=== PATIENT | male | born 1985 | race Caucasian/White ===

== ENCOUNTER 2016-09-06 14:08 | Emergency (ER) | payer MEDICAID ==
[~2016-09-06] VITALS: Ht 175.3 cm; Wt 91.0 kg
[2016-09-06] MEDS ORDERED: SODIUM CHLORIDE 0.9% 1,000 ML IV ONE (15:33)
[2016-09-06 16:24] LABS: CHLORIDE 101 mEq/L (98-107); INDEX HEMOLYSI 1 (1-3); INDEX ICTERIC 1 (1-4); INDEX LIPEMIC 1 (1-3)
[2016-09-06 16:27] LABS: CALCIUM 8.3 mg/dL (8.5-10.1)
[2016-09-06 16:28] LABS: BASOPHILS % 0.9 % (0.0-2.0); EOSINOPHILS % 2.2 % (0.0-5.0); HEMATOCRIT. 37.7 % (42.0-52.0); HEMOGLOBIN. 12.2 g/dL (14.0-18.0); LYMPHOCYTES % 42.4 % (20.0-50.0); MEAN CORPUSCULAR HGB CONC 32.4 g/dL (31.0-37.0); MEAN CORPUSCULAR VOLUME 80.2 fL (80.0-94.0); MEAN PLATELET VOLUME 7.6 fl (7.4-10.4); MONOCYTES % 9.8 % (2.0-8.0); NEUTROPHILS % 44.7 % (40.0-76.0); PLATELET 284 x1000/uL (130-400); RED BLOOD CELL COUNT 4.69 mill/uL (4.7-6.1); RED CELL DISTRIBUTION WIDTH 23.2 % (11.6-14.6); WHITE BLOOD COUNT 6.3 x1000/uL (4.5-11.0)
[2016-09-06 16:31] LABS: ALANINE AMINOTRANSFERASE 67 IU/L (13-61); ALBUMIN 3.5 g/dL (3.4-5.0); ANION GAP 15; CARBON DIOXIDE 33 mEq/L (21-32); UREA NITROGEN BLOOD 5 mg/dL (7-21); eGFR > 60 mL/min (>60)
[2016-09-06 16:32] LABS: DIFFERENTIAL COMMENT 1
[2016-09-06 16:34] LABS: ADD RBC MORPHOLOGY YES
[2016-09-06 16:51] LABS: ETHANOL BLOOD 462 mg/dL
[2016-09-06 17:15] LABS: MAGNESIUM 2.3 mg/dL (1.8-2.4)
[2016-09-06] MEDS ORDERED: MAGNESIUM 2 G PREMIX 50 ML IV ONE (17:15)
[2016-09-06] MEDS ORDERED: KCL 20MEQ/100ML PREMIX 100 ML IV ONE (17:15)
[2016-09-06] MEDS ORDERED: OLANZAPINE 10 MG/VIAL IM ONE (17:15)
[2016-09-06] MEDS ORDERED: LORAZEPAM 2MG/ML CPJ IM PRN (17:15)
[2016-09-06 17:19] LABS: CLARITY URINE CLEAR (CLEAR); COLOR URINE YELLOW (YELLOW); GLUCOSE URINE NEGATIVE (NEGATIVE); KETONES URINE NEGATIVE (NEGATIVE); LEUKOCYTE ESTERASE URINE NEGATIVE (NEGATIVE); NITRITE URINE NEGATIVE (NEGATIVE); OCCULT BLOOD URINE NEGATIVE (NEGATIVE); PROTEIN URINE NEGATIVE (NEGATIVE); SPECIFIC GRAVITY URINE 1.004 (1.005-1.030); UROBILINOGEN URINE 0.2 E.U./dL (0.2-1.0)
[2016-09-06 17:39] LABS: ANISOCYTOSIS 2+; GIANT PLATELETS FEW; PLATELET ESTIMATE NORMAL
[2016-09-06 17:55] LABS: *AMPHETAMINES SCREEN URINE NEGATIVE (NEGATIVE); *BARBITURATES SCREEN URINE NEGATIVE (NEGATIVE); *BENZODIAZEPINES SCREEN URINE NEGATIVE (NEGATIVE); *COCAINE SCREEN URINE NEGATIVE (NEGATIVE); CANNABINOID URINE SCREEN NEGATIVE (NEGATIVE); ECSTASY MDMA SCREEN URINE NEGATIVE (NEGATIVE); METHADONE URINE SCREEN NEGATIVE (NEGATIVE); OPIATES URINE SCREEN NEGATIVE (NEGATIVE); PHENCYCLIDINE URINE SCREEN NEGATIVE (NEGATIVE)
[2016-09-06] MEDS ORDERED: POTASSIUM BICARB/CIT ACID 25 MEQ TABLET.EFF PO ONE (19:00)
[2016-09-06 20:00] LABS: CHLORIDE 104 mEq/L (98-107); INDEX HEMOLYSI 1 (1-3); INDEX ICTERIC 1 (1-4); INDEX LIPEMIC 1 (1-3)
[2016-09-06 20:01] LABS: CALCIUM 8.2 mg/dL (8.5-10.1)
[2016-09-06 20:06] LABS: ANION GAP 14; CARBON DIOXIDE 33 mEq/L (21-32); UREA NITROGEN BLOOD 7 mg/dL (7-21); eGFR > 60 mL/min (>60)
[2016-09-06 20:20] VITALS: BP 106/54
== END 2016-09-06 21:26 | disposition home or self-care (01) ==
LOC: ER 14:32
DX: F10.129 Alcohol abuse with intoxication, unspecified (principal); F20.9 Schizophrenia, unspecified; F17.200 Nicotine dependence, unspecified, uncomplicated; Y90.8 Blood alcohol level of 240 mg/100 ml or more
CPT/HCPCS: 36415; 80048; 80053; 80305; 81003; 83735; 85025; 93005; 96361; 96365; 96372; 99285; G0482; J3475; J3480; J3490; J7030; Z7610

== ENCOUNTER 2022-02-07 20:01 | Inpatient (IN) | payer MEDICAID, OTHER ==
[~2022-02-07] VITALS: Ht 182.9 cm; Wt 78.5 kg
[2022-02-07] MEDS ORDERED: OCTREOTIDE ACETATE 50 MCG/ML 1ML IV STA (20:14)
[2022-02-07] MEDS ORDERED: OCTREOTIDE 1,000 MCG in SODIUM CHLORIDE 0.9% 100 ML IV STA (20:14)
[2022-02-07] MEDS ORDERED: PANTOPRAZOLE SODIUM 40 MG/VIAL IV STA (20:14)
[2022-02-07] MEDS ORDERED: ONDANSETRON HCL 4MG/2ML INJ IV STA (20:14)
[2022-02-07] MEDS ORDERED: SODIUM CHLORIDE 0.9% 1,000 ML IV ONE (20:15)
[2022-02-07 21:22] LABS: EOSINOPHILS % 1.8 % (0.0-5.0); LYMPHOCYTES % 21.7 % (20.0-50.0); MEAN CORPUSCULAR HEMOGLOBIN 26.5 pg (28.0-32.0); MEAN CORPUSCULAR VOLUME 84.9 fL (80.0-94.0); MEAN PLATELET VOLUME 8.3 fl (7.4-10.4); MONOCYTES % 10.1 % (2.0-8.0); NEUTROPHILS % 64.4 % (40.0-76.0); PLATELET 62 x1000/uL (130-400); RED CELL DISTRIBUTION WIDTH 23.9 % (11.6-14.6)
[2022-02-07 21:25] LABS: CHLORIDE 105 mEq/L (98-107)
[2022-02-07 21:32] LABS: INR 2.2; PARTIAL THROMBOPLASTIN TIME 33.6 sec (23.4-31.0); PROTHROMBIN TIME 22.4 sec (9.6-11.0)
[2022-02-07 21:37] LABS: HEMATOCRIT. 11.9 % (42.0-52.0); HEMOGLOBIN. 3.7 g/dL (14.0-18.0)
[2022-02-08] VITALS (27 sets, daily range): BP systolic 106–150; BP diastolic 54–88
[2022-02-08 03:45] LABS: HEMATOCRIT 16.8 % (42.0-52.0); HEMOGLOBIN 5.5 g/dL (14.0-18.0)
[2022-02-08] MEDS ORDERED: RISP1 MT (03:57)
[2022-02-08] MEDS ORDERED: OCTREOTIDE 1,000 MCG in SODIUM CHLORIDE 0.9% 98 ML IV PRN (04:30)
[2022-02-08] MEDS ORDERED: MORPHINE SULFATE 2 MG/ML CPJ (NOT FOR IM USE) IV PRN (04:30)
[2022-02-08] MEDS: SODIUM CHLORIDE 0.9% 1,000 ML IV SCH ×3 (04:56→23:59)
[2022-02-08] MEDS: KCL 10MEQ/50ML PREMIX 50 ML IV NR ×4 (04:57→11:55)
[2022-02-08] MEDS ORDERED: NALOXONE HCL 0.4MG/ML VIAL IV PRN (05:00)
[2022-02-08] MEDS: PANTOPRAZOLE 80 MG in SODIUM CHLORIDE 0.9% 100 ML IV SCH ×2 (05:03→14:23)
[2022-02-08] MEDS ORDERED: LIDOCAINE HCL 1% 30ML VIAL (10MG/ML) ONE (08:24)
[2022-02-08] MEDS ORDERED: MAGNESIUM SULFATE 1GM/2ML VIAL IM ONE (10:45)
[2022-02-08] MEDS ORDERED: MAGNESIUM 2 G PREMIX 50 ML IV NR ×2 (11:00→17:00)
[2022-02-08 14:54] LABS: BASOPHILS % 2.1 % (0.0-2.0); EOSINOPHILS % 3.7 % (0.0-5.0); HEMATOCRIT. 23.8 % (42.0-52.0); HEMOGLOBIN. 7.8 g/dL (14.0-18.0); MEAN CORPUSCULAR HEMOGLOBIN 28.3 pg (28.0-32.0); MEAN CORPUSCULAR VOLUME 86.6 fL (80.0-94.0); MEAN PLATELET VOLUME 8.8 fl (7.4-10.4); NEUTROPHILS % 63.2 % (40.0-76.0); PLATELET 69 x1000/uL (130-400); RED BLOOD CELL COUNT 2.74 mill/uL (4.7-6.1); RED CELL DISTRIBUTION WIDTH 16.8 % (11.6-14.6)
[2022-02-08] MEDS: CEFTRIAXONE 1,000 MG in DEXTROSE 5% WATER 50 ML IV SCH (14:55)
[2022-02-08] MEDS: PHYTONADIONE 10MG/ML AMP SUBCUT SCH (14:55)
[2022-02-08 15:04] LABS: INR 1.9; PROTHROMBIN TIME 19.8 sec (9.6-11.0)
[2022-02-08 16:19] LABS: HEPATITIS B SURFACE ANTIGEN NEGATIVE
[2022-02-08] MEDS: PANTOPRAZOLE SODIUM 40 MG/VIAL IV SCH (17:00)
[2022-02-08] MEDS: OCTREOTIDE 1,000 MCG in SODIUM CHLORIDE 0.9% 98 ML IV SCH (17:33)
[2022-02-08] MEDS: LACTULOSE 20G/30ML UDC PO SCH (21:35)
[2022-02-08] MEDS: RIFAXIMIN 550 MG TABLET PO SCH (21:35)
[2022-02-08] MEDS: LORAZEPAM 2MG/ML CPJ IV PRN (21:36)
[2022-02-09] VITALS (71 sets, daily range): BP systolic 94–201; BP diastolic 54–110
[2022-02-09 03:21] LABS: BASOPHILS % 0.9 % (0.0-2.0); EOSINOPHILS % 4.5 % (0.0-5.0); HEMATOCRIT. 26.2 % (42.0-52.0); HEMOGLOBIN. 8.6 g/dL (14.0-18.0); LYMPHOCYTES % 13.6 % (20.0-50.0); MEAN CORPUSCULAR HEMOGLOBIN 28.6 pg (28.0-32.0); MEAN CORPUSCULAR VOLUME 86.9 fL (80.0-94.0); MEAN PLATELET VOLUME 8.8 fl (7.4-10.4); MONOCYTES % 5.8 % (2.0-8.0); NEUTROPHILS % 75.2 % (40.0-76.0); PLATELET 62 x1000/uL (130-400); RED BLOOD CELL COUNT 3.01 mill/uL (4.7-6.1); RED CELL DISTRIBUTION WIDTH 16.5 % (11.6-14.6)
[2022-02-09 03:29] LABS: CHLORIDE 111 mEq/L (98-107)
[2022-02-09 03:32] LABS: INR 1.6; PROTHROMBIN TIME 16.5 sec (9.6-11.0)
[2022-02-09 03:56] LABS: PHOSPHORUS 0.9 mg/dL (2.5-4.9)
[2022-02-09] MEDS: LORAZEPAM 2MG/ML CPJ IV PRN (04:28)
[2022-02-09] MEDS: LACTULOSE 20G/30ML UDC PO SCH ×3 (06:37→21:23)
[2022-02-09] MEDS: CHLORDIAZEPOXIDE 25MG CAPSULE PO SCH ×3 (08:00→21:23)
[2022-02-09 08:07] LABS: HEMATOCRIT 27.7 % (42.0-52.0); HEMOGLOBIN 9.2 g/dL (14.0-18.0); MEAN CORPUSCULAR HEMOGLOBIN 28.8 pg (28.0-32.0); MEAN CORPUSCULAR VOLUME 86.6 fL (80.0-94.0); PLATELET 66 x1000/uL (130-400); RED CELL DISTRIBUTION WIDTH 17.2 % (11.6-14.6)
[2022-02-09] MEDS ORDERED: LORAZEPAM 2MG/ML CPJ IV PRN (08:15)
[2022-02-09] MEDS: PANTOPRAZOLE SODIUM 40 MG/VIAL IV SCH ×2 (08:27→17:06)
[2022-02-09] MEDS: PHYTONADIONE 10MG/ML AMP SUBCUT SCH (08:28)
[2022-02-09] MEDS: OCTREOTIDE 1,000 MCG in SODIUM CHLORIDE 0.9% 98 ML IV SCH (08:28)
[2022-02-09] MEDS: RIFAXIMIN 550 MG TABLET PO SCH ×2 (08:35→21:23)
[2022-02-09 08:41] LABS: BG BASE EXCESS -3.6 mmol/L (-2.0-2.0); BG CARBOXYHEMOGLOBIN 1.3 % (0.5-1.5); BG DEOXYHEMOGLOBIN 2.9 % (0.0-5.0); BG FRACTION INSPIRED OXYGEN 21; BG HCO3 ACT 18.9 mmol/L (22.0-26.0); BG METHEMOGLOBIN 0.3 % (0.0-1.5); BG OXYGEN SATURATION 97.1 % (92.0-98.5); BG OXYHEMOGLOBIN 95.5 % (94.0-97.0); BG PCO2 26.2 mmHg (35.0-45.0); BG PH 7.475 (7.350-7.450); BG PO2 89.9 mmHg (75.0-100.0); BG SAMPLE SITE RIGHT RADIAL; BG TOTAL HEMOGLOBIN 10.3 g/dL (12.0-18.0); BG VENT MODE ROOM AIR
[2022-02-09] MEDS ORDERED: LEVETIRACETAM 500 MG in SODIUM CHLORIDE 0.9% 100 ML IV SCH (08:45)
[2022-02-09] MEDS ORDERED: POTASSIUM PHOS,M-BASIC-D-BASIC 20 MMOL in DEXT 5% WATER 243.3333 ML IV NR (09:00)
[2022-02-09] MEDS: LEVETIRACETAM 500MG PREMIX 100 ML IV SCH ×2 (09:03→21:23)
[2022-02-09] MEDS: SODIUM CHLORIDE 0.9% 1,000 ML IV SCH ×2 (09:22→19:49)
[2022-02-09] MEDS ORDERED: DILTIAZEM HCL 5MG/ML 5ML VIAL IV NR (09:30)
[2022-02-09] MEDS ORDERED: FENTANYL 2500MCG/250ML PMX 250 ML IV PRN (10:00)
[2022-02-09] MEDS ORDERED: MIDAZOLAM HCL 100 MG in SODIUM CHLORIDE 0.9% 80 ML IV PRN (10:00)
[2022-02-09] MEDS ORDERED: LACTULOSE 300 ML in WATER FOR IRRIGATION,STERILE 700 ML IR NR (10:30)
[2022-02-09] MEDS ORDERED: FOLIC ACID 1 MG, THIAMINE HCL 100 MG, MVI, ADULT NO.1 10 ML in DEXTROSE 5% WATER 1,000 ML IV ONE ×4 (11:00)
[2022-02-09 11:50] LABS: BG BASE EXCESS -1.4 mmol/L (-2.0-2.0); BG CARBOXYHEMOGLOBIN 1.1 % (0.5-1.5); BG DEOXYHEMOGLOBIN 2.2 % (0.0-5.0); BG FRACTION INSPIRED OXYGEN 50; BG HCO3 ACT 21.7 mmol/L (22.0-26.0); BG METHEMOGLOBIN 0.1 % (0.0-1.5); BG OXYGEN SATURATION 97.8 % (92.0-98.5); BG OXYHEMOGLOBIN 96.6 % (94.0-97.0); BG PCO2 30.6 mmHg (35.0-45.0); BG PH 7.468 (7.350-7.450); BG PO2 102.2 mmHg (75.0-100.0); BG SAMPLE SITE RIGHT RADIAL; BG TOTAL HEMOGLOBIN 10.2 g/dL (12.0-18.0); BG VENT MODE VENT - AC
[2022-02-09] MEDS: CEFTRIAXONE 1,000 MG in DEXTROSE 5% WATER 50 ML IV SCH (13:27)
[2022-02-09] MEDS: IPRATROPIUM/ALBUTEROL 0.5-3(2.5)MG/3ML NEB HHN SCH (20:05)
[2022-02-10] VITALS (99 sets, daily range): BP systolic 87–112; BP diastolic 53–78
[2022-02-10] MEDS: IPRATROPIUM/ALBUTEROL 0.5-3(2.5)MG/3ML NEB HHN SCH ×4 (01:55→19:34)
[2022-02-10 06:20] LABS: BASOPHILS % 0.8 % (0.0-2.0); EOSINOPHILS % 4.3 % (0.0-5.0); HEMATOCRIT. 24.1 % (42.0-52.0); LYMPHOCYTES % 25.5 % (20.0-50.0); MEAN CORPUSCULAR HEMOGLOBIN 29.1 pg (28.0-32.0); MEAN CORPUSCULAR VOLUME 87.6 fL (80.0-94.0); MEAN PLATELET VOLUME 9.2 fl (7.4-10.4); MONOCYTES % 6.3 % (2.0-8.0); NEUTROPHILS % 63.1 % (40.0-76.0); PLATELET 60 x1000/uL (130-400); RED BLOOD CELL COUNT 2.75 mill/uL (4.7-6.1)
[2022-02-10 06:28] LABS: INR 1.7; PROTHROMBIN TIME 17.7 sec (9.6-11.0)
[2022-02-10] MEDS: LACTULOSE 20G/30ML UDC PO SCH ×3 (06:32→21:10)
[2022-02-10] MEDS: OCTREOTIDE 1,000 MCG in SODIUM CHLORIDE 0.9% 98 ML IV SCH ×2 (06:32→16:15)
[2022-02-10] MEDS: CHLORDIAZEPOXIDE 25MG CAPSULE PO SCH ×3 (06:32→21:10)
[2022-02-10] MEDS: SODIUM CHLORIDE 0.9% 1,000 ML IV SCH ×2 (06:33→16:30)
[2022-02-10 06:40] LABS: CHLORIDE 112 mEq/L (98-107)
[2022-02-10 07:11] LABS: PHOSPHORUS 0.5 mg/dL (2.5-4.9)
[2022-02-10] MEDS: PHYTONADIONE 10MG/ML AMP SUBCUT SCH (08:02)
[2022-02-10] MEDS: PANTOPRAZOLE SODIUM 40 MG/VIAL IV SCH ×2 (08:02→17:53)
[2022-02-10] MEDS: LEVETIRACETAM 500MG PREMIX 100 ML IV SCH ×2 (08:02→20:53)
[2022-02-10] MEDS: RIFAXIMIN 550 MG TABLET PO SCH ×2 (08:02→20:53)
[2022-02-10] MEDS ORDERED: POTASSIUM CHLORIDE INJ 40 MEQ in DEXT 5% WATER 250 ML IV ONE (08:15)
[2022-02-10 08:23] LABS: BG BASE EXCESS -0.4 mmol/L (-2.0-2.0); BG CARBOXYHEMOGLOBIN 1.2 % (0.5-1.5); BG DEOXYHEMOGLOBIN 0.6 % (0.0-5.0); BG FRACTION INSPIRED OXYGEN 50; BG HCO3 ACT 21.8 mmol/L (22.0-26.0); BG METHEMOGLOBIN 0.3 % (0.0-1.5); BG OXYGEN SATURATION 99.4 % (92.0-98.5); BG OXYHEMOGLOBIN 97.9 % (94.0-97.0); BG PCO2 26.9 mmHg (35.0-45.0); BG PH 7.526 (7.350-7.450); BG PO2 157.2 mmHg (75.0-100.0); BG SAMPLE SITE RIGHT RADIAL; BG TOTAL HEMOGLOBIN 8.9 g/dL (12.0-18.0); BG VENT MODE VENT - AC
[2022-02-10] MEDS ORDERED: MAGNESIUM 2 G PREMIX 50 ML IV NR (10:00)
[2022-02-10] MEDS ORDERED: POTASSIUM PHOS,M-BASIC-D-BASIC 30 MMOL in DEXT 5% WATER 500 ML IV ONE (10:00)
[2022-02-10] MEDS: MVI, ADULT NO.1 10 ML, FOLIC ACID 1 MG, THIAMINE HCL 100 MG in SODIUM CHLORIDE 0.9% 1,0... IV SCH ×4 (10:16)
[2022-02-10] MEDS: CEFTRIAXONE 1,000 MG in DEXTROSE 5% WATER 50 ML IV SCH (12:06)
[2022-02-10] MEDS: KCL 20MEQ/100ML X 2 FOR TOTAL KCL 40MEQ/200ML IV SCH ×2 (17:39→18:45)
[2022-02-11] VITALS (86 sets, daily range): BP systolic 86–153; BP diastolic 51–98
[2022-02-11] MEDS: IPRATROPIUM/ALBUTEROL 0.5-3(2.5)MG/3ML NEB HHN SCH ×3 (01:56→20:10)
[2022-02-11] MEDS: SODIUM CHLORIDE 0.9% 1,000 ML IV SCH ×2 (02:32→08:24)
[2022-02-11] MEDS: OCTREOTIDE 1,000 MCG in SODIUM CHLORIDE 0.9% 98 ML IV SCH ×2 (02:32→12:31)
[2022-02-11] MEDS: CHLORDIAZEPOXIDE 25MG CAPSULE PO SCH ×4 (05:23→22:56)
[2022-02-11] MEDS: LACTULOSE 20G/30ML UDC PO SCH ×3 (05:23→22:56)
[2022-02-11 05:59] LABS: BASOPHILS % 1.2 % (0.0-2.0); EOSINOPHILS % 4.5 % (0.0-5.0); HEMATOCRIT. 25.4 % (42.0-52.0); HEMOGLOBIN. 8.4 g/dL (14.0-18.0); LYMPHOCYTES % 20.8 % (20.0-50.0); MEAN CORPUSCULAR HEMOGLOBIN 29.1 pg (28.0-32.0); MEAN CORPUSCULAR VOLUME 87.7 fL (80.0-94.0); MEAN PLATELET VOLUME 9.2 fl (7.4-10.4); NEUTROPHILS % 65.5 % (40.0-76.0); PLATELET 64 x1000/uL (130-400); RED BLOOD CELL COUNT 2.89 mill/uL (4.7-6.1); RED CELL DISTRIBUTION WIDTH 17.5 % (11.6-14.6)
[2022-02-11 06:12] LABS: CHLORIDE 117 mEq/L (98-107)
[2022-02-11 06:21] LABS: PHOSPHORUS 1.5 mg/dL (2.5-4.9)
[2022-02-11 07:02] LABS: INR 1.5; PROTHROMBIN TIME 15.7 sec (9.6-11.0)
[2022-02-11] MEDS ORDERED: SODIUM CHLORIDE 0.9% 500 ML IV SCH (08:00)
[2022-02-11] MEDS: PANTOPRAZOLE SODIUM 40 MG/VIAL IV SCH ×2 (08:08→16:48)
[2022-02-11] MEDS: LEVETIRACETAM 500MG PREMIX 100 ML IV SCH ×2 (08:08→21:17)
[2022-02-11] MEDS: PHYTONADIONE 10MG/ML AMP SUBCUT SCH (08:08)
[2022-02-11] MEDS: RIFAXIMIN 550 MG TABLET PO SCH ×2 (08:24→21:18)
[2022-02-11 08:30] LABS: BG BASE EXCESS -5.4 mmol/L (-2.0-2.0); BG CARBOXYHEMOGLOBIN 1.1 % (0.5-1.5); BG DEOXYHEMOGLOBIN 1.8 % (0.0-5.0); BG FRACTION INSPIRED OXYGEN 35; BG HCO3 ACT 17.7 mmol/L (22.0-26.0); BG METHEMOGLOBIN 0.3 % (0.0-1.5); BG OXYGEN SATURATION 98.2 % (92.0-98.5); BG OXYHEMOGLOBIN 96.8 % (94.0-97.0); BG PCO2 26.8 mmHg (35.0-45.0); BG PH 7.438 (7.350-7.450); BG PO2 111.5 mmHg (75.0-100.0); BG SAMPLE SITE RIGHT RADIAL; BG TOTAL HEMOGLOBIN 9.8 g/dL (12.0-18.0); BG VENT MODE VENT - AC
[2022-02-11] MEDS ORDERED: MAGNESIUM SULFATE 1GM/2ML VIAL IM ONE (08:45)
[2022-02-11] MEDS ORDERED: MAGNESIUM 1 G PREMIX 100 ML IV SCH (09:00)
[2022-02-11] MEDS: MIDODRINE HCL 5MG TABLET PO SCH ×3 (09:58→16:45)
[2022-02-11] MEDS: MVI, ADULT NO.1 10 ML, FOLIC ACID 1 MG, THIAMINE HCL 100 MG in SODIUM CHLORIDE 0.9% 1,0... IV SCH ×4 (10:06)
[2022-02-11] MEDS ORDERED: POTASSIUM PHOS,M-BASIC-D-BASIC 30 MMOL in SODIUM CHLORIDE 0.9% 500 ML IV SCH (11:00)
[2022-02-11] MEDS: CEFTRIAXONE 1,000 MG in DEXTROSE 5% WATER 50 ML IV SCH (12:32)
[2022-02-11] MEDS ORDERED: MIDAZOLAM HCL 5 MG/5 ML VIAL ONE (14:25)
[2022-02-11] MEDS ORDERED: PROPOFOL 200MG/20ML VIAL IV ONE (14:25)
[2022-02-11] MEDS ORDERED: ROCURONIUM BROMIDE 10MG/ML VIAL 5ML IV ONE (14:26)
[2022-02-11] MEDS ORDERED: DILTIAZEM HCL 5MG/ML 5ML VIAL IV NR (16:31)
[2022-02-11] MEDS: ACETAMINOPHEN 650MG/20.3ML UDC PO PRN (17:30)
[2022-02-11] MEDS: LORAZEPAM 2MG/ML CPJ IV PRN (19:06)
[2022-02-11] MEDS: METRONIDAZOLE 500 MG PREMIX 100 ML IV SCH (19:26)
[2022-02-11] MEDS: DILTIAZEM HCL 60MG TABLET PO SCH (22:56)
[2022-02-12] VITALS (77 sets, daily range): BP systolic 39–125; BP diastolic 31–91
[2022-02-12] MEDS: IPRATROPIUM/ALBUTEROL 0.5-3(2.5)MG/3ML NEB HHN SCH ×4 (02:19→20:26)
[2022-02-12] MEDS: METRONIDAZOLE 500 MG PREMIX 100 ML IV SCH ×3 (03:15→21:32)
[2022-02-12 05:08] LABS: BASOPHILS % 1.1 % (0.0-2.0); EOSINOPHILS % 4.4 % (0.0-5.0); HEMATOCRIT. 26.8 % (42.0-52.0); HEMOGLOBIN. 8.8 g/dL (14.0-18.0); LYMPHOCYTES % 14.2 % (20.0-50.0); MEAN CORPUSCULAR HEMOGLOBIN 29.4 pg (28.0-32.0); MEAN CORPUSCULAR VOLUME 89.9 fL (80.0-94.0); MEAN PLATELET VOLUME 8.8 fl (7.4-10.4); MONOCYTES % 10.3 % (2.0-8.0); PLATELET 67 x1000/uL (130-400); RED BLOOD CELL COUNT 2.98 mill/uL (4.7-6.1); RED CELL DISTRIBUTION WIDTH 17.5 % (11.6-14.6)
[2022-02-12 05:13] LABS: CHLORIDE 112 mEq/L (98-107)
[2022-02-12 05:17] LABS: INR 1.7; PROTHROMBIN TIME 17.9 sec (9.6-11.0)
[2022-02-12 05:21] LABS: PHOSPHORUS 1.9 mg/dL (2.5-4.9)
[2022-02-12] MEDS: OCTREOTIDE 1,000 MCG in SODIUM CHLORIDE 0.9% 98 ML IV SCH (06:00)
[2022-02-12] MEDS: DILTIAZEM HCL 60MG TABLET PO SCH ×3 (06:31→21:31)
[2022-02-12] MEDS: LORAZEPAM 2MG/ML CPJ IV PRN ×3 (06:32→21:33)
[2022-02-12] MEDS: LACTULOSE 20G/30ML UDC PO SCH ×3 (06:40→21:31)
[2022-02-12] MEDS: CHLORDIAZEPOXIDE 25MG CAPSULE PO SCH ×3 (06:40→21:31)
[2022-02-12 09:18] LABS: BG BASE EXCESS -4.8 mmol/L (-2.0-2.0); BG CARBOXYHEMOGLOBIN 0.7 % (0.5-1.5); BG DEOXYHEMOGLOBIN 2.2 % (0.0-5.0); BG FRACTION INSPIRED OXYGEN 60; BG HCO3 ACT 19.1 mmol/L (22.0-26.0); BG METHEMOGLOBIN 0.3 % (0.0-1.5); BG OXYGEN SATURATION 97.8 % (92.0-98.5); BG OXYHEMOGLOBIN 96.8 % (94.0-97.0); BG PCO2 30.7 mmHg (35.0-45.0); BG PH 7.411 (7.350-7.450); BG PO2 106.4 mmHg (75.0-100.0); BG SAMPLE SITE LEFT RADIAL; BG TOTAL HEMOGLOBIN 9.1 g/dL (12.0-18.0); BG VENT MODE VENT - AC
[2022-02-12] MEDS: LEVETIRACETAM 500MG PREMIX 100 ML IV SCH ×2 (09:35→21:33)
[2022-02-12] MEDS: RIFAXIMIN 550 MG TABLET PO SCH ×2 (09:36→23:28)
[2022-02-12] MEDS: PANTOPRAZOLE SODIUM 40 MG/VIAL IV SCH ×2 (09:36→17:34)
[2022-02-12] MEDS: MIDODRINE HCL 5MG TABLET PO SCH ×3 (09:36→17:34)
[2022-02-12] MEDS: MVI, ADULT NO.1 10 ML, FOLIC ACID 1 MG, THIAMINE HCL 100 MG in SODIUM CHLORIDE 0.9% 1,0... IV SCH ×4 (11:48)
[2022-02-12] MEDS: CEFTRIAXONE 1,000 MG in DEXTROSE 5% WATER 50 ML IV SCH (13:43)
[2022-02-13] VITALS (85 sets, daily range): BP systolic 85–135; BP diastolic 36–84
[2022-02-13] MEDS: LORAZEPAM 2MG/ML CPJ IV PRN ×7 (00:47→16:15)
[2022-02-13] MEDS: IPRATROPIUM/ALBUTEROL 0.5-3(2.5)MG/3ML NEB HHN SCH ×4 (01:07→20:22)
[2022-02-13] MEDS: OCTREOTIDE 1,000 MCG in SODIUM CHLORIDE 0.9% 98 ML IV SCH ×2 (02:35→21:15)
[2022-02-13] MEDS: METRONIDAZOLE 500 MG PREMIX 100 ML IV SCH ×3 (02:35→18:08)
[2022-02-13 05:55] LABS: PROTHROMBIN TIME 19.9 sec (9.6-11.0)
[2022-02-13] MEDS: LACTULOSE 20G/30ML UDC PO SCH ×3 (06:39→21:15)
[2022-02-13] MEDS: CHLORDIAZEPOXIDE 25MG CAPSULE PO SCH ×3 (06:40→21:15)
[2022-02-13] MEDS: DILTIAZEM HCL 60MG TABLET PO SCH ×3 (06:40→21:15)
[2022-02-13 07:45] LABS: BG BASE EXCESS -2.1 mmol/L (-2.0-2.0); BG CARBOXYHEMOGLOBIN 0.7 % (0.5-1.5); BG DEOXYHEMOGLOBIN 3.9 % (0.0-5.0); BG HCO3 ACT 21.7 mmol/L (22.0-26.0); BG METHEMOGLOBIN 0.3 % (0.0-1.5); BG OXYGEN SATURATION 96.1 % (92.0-98.5); BG OXYHEMOGLOBIN 95.1 % (94.0-97.0); BG PCO2 33.7 mmHg (35.0-45.0); BG PH 7.427 (7.350-7.450); BG PO2 78.6 mmHg (75.0-100.0); BG SAMPLE SITE RIGHT BRACHIAL; BG TOTAL HEMOGLOBIN 9.9 g/dL (12.0-18.0); BG VENT MODE VENT - AC
[2022-02-13] MEDS: MIDODRINE HCL 5MG TABLET PO SCH ×3 (09:10→16:17)
[2022-02-13] MEDS: PANTOPRAZOLE SODIUM 40 MG/VIAL IV SCH ×2 (09:10→16:21)
[2022-02-13] MEDS: RIFAXIMIN 550 MG TABLET PO SCH ×2 (09:10→21:15)
[2022-02-13] MEDS: LEVETIRACETAM 500MG PREMIX 100 ML IV SCH ×2 (09:11→21:15)
[2022-02-13 09:40] LABS: BG BASE EXCESS -3.5 mmol/L (-2.0-2.0); BG CARBOXYHEMOGLOBIN 0.8 % (0.5-1.5); BG DEOXYHEMOGLOBIN 3.1 % (0.0-5.0); BG FRACTION INSPIRED OXYGEN 35; BG HCO3 ACT 19.9 mmol/L (22.0-26.0); BG METHEMOGLOBIN 0.3 % (0.0-1.5); BG OXYGEN SATURATION 96.9 % (92.0-98.5); BG OXYHEMOGLOBIN 95.8 % (94.0-97.0); BG PCO2 29.4 mmHg (35.0-45.0); BG PH 7.448 (7.350-7.450); BG PO2 87.8 mmHg (75.0-100.0); BG SAMPLE SITE LEFT RADIAL; BG TOTAL HEMOGLOBIN 8.8 g/dL (12.0-18.0); BG VENT MODE VENT - CPAP
[2022-02-13 10:28] LABS: BASOPHILS % 1.2 % (0.0-2.0); EOSINOPHILS % 3.5 % (0.0-5.0); HEMATOCRIT. 23.9 % (42.0-52.0); HEMOGLOBIN. 7.9 g/dL (14.0-18.0); LYMPHOCYTES % 13.3 % (20.0-50.0); MEAN CORPUSCULAR HEMOGLOBIN 29.7 pg (28.0-32.0); MEAN CORPUSCULAR VOLUME 90.2 fL (80.0-94.0); MONOCYTES % 13.6 % (2.0-8.0); NEUTROPHILS % 68.4 % (40.0-76.0); PLATELET 62 x1000/uL (130-400); RED BLOOD CELL COUNT 2.65 mill/uL (4.7-6.1); RED CELL DISTRIBUTION WIDTH 17.3 % (11.6-14.6)
[2022-02-13 10:32] LABS: CHLORIDE 109 mEq/L (98-107)
[2022-02-13] MEDS: MVI, ADULT NO.1 10 ML, FOLIC ACID 1 MG, THIAMINE HCL 100 MG in SODIUM CHLORIDE 0.9% 1,0... IV SCH ×4 (10:35)
[2022-02-13] MEDS ORDERED: MIDAZOLAM HCL 100 MG in SODIUM CHLORIDE 0.9% 80 ML IV PRN (16:30)
[2022-02-13] MEDS: PROPOFOL 10MG/ML 100ML 100 ML IV PRN ×2 (17:37→23:21)
[2022-02-14] VITALS (59 sets, daily range): BP systolic 85–131; BP diastolic 51–114
[2022-02-14] MEDS: IPRATROPIUM/ALBUTEROL 0.5-3(2.5)MG/3ML NEB HHN SCH ×4 (01:26→20:06)
[2022-02-14] MEDS: METRONIDAZOLE 500 MG PREMIX 100 ML IV SCH ×3 (02:55→18:04)
[2022-02-14 05:19] LABS: INR 2.1
[2022-02-14] MEDS: CHLORDIAZEPOXIDE 25MG CAPSULE PO SCH ×3 (06:05→21:12)
[2022-02-14] MEDS: LACTULOSE 20G/30ML UDC PO SCH ×3 (06:05→21:12)
[2022-02-14] MEDS: DILTIAZEM HCL 60MG TABLET PO SCH ×3 (06:06→21:12)
[2022-02-14] MEDS: LEVETIRACETAM 500MG PREMIX 100 ML IV SCH ×2 (08:27→21:13)
[2022-02-14] MEDS: PANTOPRAZOLE SODIUM 40 MG/VIAL IV SCH ×2 (08:28→17:31)
[2022-02-14] MEDS: MIDODRINE HCL 5MG TABLET PO SCH ×3 (08:28→17:31)
[2022-02-14] MEDS: KCL 20MEQ/100ML PREMIX 100 ML IV SCH ×2 (09:28→11:44)
[2022-02-14] MEDS: LORAZEPAM 2MG/ML CPJ IV PRN (09:29)
[2022-02-14] MEDS: PROPOFOL 10MG/ML 100ML 100 ML IV PRN ×2 (10:52→17:32)
[2022-02-14] MEDS: MVI, ADULT NO.1 10 ML, FOLIC ACID 1 MG, THIAMINE HCL 100 MG in SODIUM CHLORIDE 0.9% 1,0... IV SCH ×4 (11:00)
[2022-02-14 12:09] LABS: BG CARBOXYHEMOGLOBIN 0.5 % (0.5-1.5); BG DEOXYHEMOGLOBIN 4.1 % (0.0-5.0); BG FRACTION INSPIRED OXYGEN 35; BG METHEMOGLOBIN 0.3 % (0.0-1.5); BG OXYGEN SATURATION 95.9 % (92.0-98.5); BG OXYHEMOGLOBIN 95.1 % (94.0-97.0); BG PCO2 28.4 mmHg (35.0-45.0); BG PH 7.466 (7.350-7.450); BG SAMPLE SITE RIGHT RADIAL; BG TOTAL HEMOGLOBIN 8.7 g/dL (12.0-18.0); BG VENT MODE VENT - AC
[2022-02-14 13:08] LABS: HEMATOCRIT. 24.3 % (42.0-52.0); MEAN CORPUSCULAR HEMOGLOBIN 29.9 pg (28.0-32.0); MEAN CORPUSCULAR VOLUME 90.3 fL (80.0-94.0); MEAN PLATELET VOLUME 8.7 fl (7.4-10.4); PLATELET 70 x1000/uL (130-400); RED BLOOD CELL COUNT 2.69 mill/uL (4.7-6.1); RED CELL DISTRIBUTION WIDTH 17.9 % (11.6-14.6)
[2022-02-14 13:46] LABS: PLATELET ESTIMATE DECREASED
[2022-02-14 13:56] LABS: CHLORIDE 110 mEq/L (98-107)
[2022-02-14] MEDS: OCTREOTIDE 1,000 MCG in SODIUM CHLORIDE 0.9% 98 ML IV SCH (17:45)
[2022-02-15] VITALS (36 sets, daily range): BP systolic 89–114; BP diastolic 51–78
[2022-02-15] MEDS: IPRATROPIUM/ALBUTEROL 0.5-3(2.5)MG/3ML NEB HHN SCH ×4 (01:50→20:09)
[2022-02-15] MEDS: METRONIDAZOLE 500 MG PREMIX 100 ML IV SCH ×3 (02:34→18:05)
[2022-02-15] MEDS: PROPOFOL 10MG/ML 100ML 100 ML IV PRN ×2 (02:34→10:23)
[2022-02-15 05:26] LABS: HEMOGLOBIN. 8.1 g/dL (14.0-18.0); MEAN CORPUSCULAR HEMOGLOBIN 30.1 pg (28.0-32.0); MEAN CORPUSCULAR VOLUME 89.6 fL (80.0-94.0); MEAN PLATELET VOLUME 8.6 fl (7.4-10.4); PLATELET 73 x1000/uL (130-400); RED BLOOD CELL COUNT 2.68 mill/uL (4.7-6.1); RED CELL DISTRIBUTION WIDTH 17.8 % (11.6-14.6)
[2022-02-15 05:33] LABS: PROTHROMBIN TIME 20.2 sec (9.6-11.0)
[2022-02-15] MEDS: DILTIAZEM HCL 60MG TABLET PO SCH ×3 (05:34→21:26)
[2022-02-15] MEDS: CHLORDIAZEPOXIDE 25MG CAPSULE PO SCH ×3 (05:34→21:27)
[2022-02-15] MEDS: LACTULOSE 20G/30ML UDC PO SCH ×3 (05:34→21:27)
[2022-02-15 06:32] LABS: CHLORIDE 110 mEq/L (98-107)
[2022-02-15] MEDS: LEVETIRACETAM 500MG PREMIX 100 ML IV SCH ×2 (08:05→20:57)
[2022-02-15 08:06] LABS: BG BASE EXCESS -0.4 mmol/L (-2.0-2.0); BG CARBOXYHEMOGLOBIN 0.8 % (0.5-1.5); BG DEOXYHEMOGLOBIN 7.8 % (0.0-5.0); BG FRACTION INSPIRED OXYGEN 35; BG HCO3 ACT 23.2 mmol/L (22.0-26.0); BG METHEMOGLOBIN 0.1 % (0.0-1.5); BG OXYGEN SATURATION 92.1 % (92.0-98.5); BG OXYHEMOGLOBIN 91.3 % (94.0-97.0); BG PCO2 33.6 mmHg (35.0-45.0); BG PH 7.457 (7.350-7.450); BG PO2 60.1 mmHg (75.0-100.0); BG SAMPLE SITE RIGHT RADIAL; BG TOTAL HEMOGLOBIN 9.1 g/dL (12.0-18.0); BG VENT MODE VBG - N/A
[2022-02-15] MEDS: PANTOPRAZOLE SODIUM 40 MG/VIAL IV SCH ×2 (08:06→17:18)
[2022-02-15] MEDS: ONDANSETRON HCL 4MG/2ML INJ IV PRN ×2 (08:06→12:24)
[2022-02-15] MEDS: MIDODRINE HCL 5MG TABLET PO SCH ×3 (08:06→17:18)
[2022-02-15] MEDS ORDERED: POTASSIUM CHLORIDE 20MEQ TABLET SR PO NR (10:00)
[2022-02-15] MEDS: SUCRALFATE 1 G/10 ML UDC PO SCH ×3 (12:24→20:57)
[2022-02-15 15:17] LABS: PLATELET ESTIMATE DECREASED
[2022-02-15 15:39] LABS: BG BASE EXCESS -2.5 mmol/L (-2.0-2.0); BG CARBOXYHEMOGLOBIN 0.8 % (0.5-1.5); BG DEOXYHEMOGLOBIN 2.4 % (0.0-5.0); BG FRACTION INSPIRED OXYGEN 40; BG HCO3 ACT 20.5 mmol/L (22.0-26.0); BG OXYGEN SATURATION 97.6 % (92.0-98.5); BG OXYHEMOGLOBIN 96.8 % (94.0-97.0); BG PH 7.468 (7.350-7.450); BG PO2 95.9 mmHg (75.0-100.0); BG SAMPLE SITE RIGHT RADIAL; BG TOTAL HEMOGLOBIN 8.8 g/dL (12.0-18.0); BG VENT MODE MASK - CPAP
[2022-02-15] MEDS: ACETAMINOPHEN 650MG/20.3ML UDC PO PRN (20:08)
[2022-02-16] VITALS (24 sets, daily range): BP systolic 85–113; BP diastolic 53–79
[2022-02-16] MEDS: IPRATROPIUM/ALBUTEROL 0.5-3(2.5)MG/3ML NEB HHN SCH ×4 (02:02→20:51)
[2022-02-16] MEDS: METRONIDAZOLE 500 MG PREMIX 100 ML IV SCH ×3 (03:18→18:19)
[2022-02-16] MEDS: CHLORDIAZEPOXIDE 25MG CAPSULE PO SCH ×3 (05:18→21:06)
[2022-02-16] MEDS: DILTIAZEM HCL 60MG TABLET PO SCH ×3 (05:18→21:07)
[2022-02-16] MEDS: LACTULOSE 20G/30ML UDC PO SCH ×3 (05:18→22:09)
[2022-02-16 05:21] LABS: HEMATOCRIT. 25.1 % (42.0-52.0); HEMOGLOBIN. 8.4 g/dL (14.0-18.0); MEAN CORPUSCULAR VOLUME 90.3 fL (80.0-94.0); MEAN PLATELET VOLUME 8.3 fl (7.4-10.4); PLATELET 97 x1000/uL (130-400); RED BLOOD CELL COUNT 2.78 mill/uL (4.7-6.1); RED CELL DISTRIBUTION WIDTH 17.8 % (11.6-14.6)
[2022-02-16 05:29] LABS: CHLORIDE 110 mEq/L (98-107)
[2022-02-16] MEDS: SUCRALFATE 1 G/10 ML UDC PO SCH ×4 (08:56→20:50)
[2022-02-16] MEDS: PANTOPRAZOLE SODIUM 40 MG/VIAL IV SCH ×2 (08:57→16:27)
[2022-02-16] MEDS: MIDODRINE HCL 5MG TABLET PO SCH ×3 (08:57→16:27)
[2022-02-16] MEDS: LEVETIRACETAM 500MG PREMIX 100 ML IV SCH ×2 (09:34→20:50)
[2022-02-16] MEDS ORDERED: POTASSIUM CHLORIDE 20MEQ TABLET SR PO NR (11:30)
[2022-02-16 11:53] LABS: PLATELET ESTIMATE DECREASED
[2022-02-16] MEDS: LORAZEPAM 2MG/ML CPJ IV PRN (23:34)
[2022-02-17] VITALS (24 sets, daily range): BP systolic 89–112; BP diastolic 50–87
[2022-02-17] MEDS: IPRATROPIUM/ALBUTEROL 0.5-3(2.5)MG/3ML NEB HHN SCH ×3 (01:30→14:30)
[2022-02-17] MEDS: LACTULOSE 20G/30ML UDC PO SCH ×3 (05:05→21:55)
[2022-02-17] MEDS: CHLORDIAZEPOXIDE 25MG CAPSULE PO SCH ×2 (05:05→21:54)
[2022-02-17] MEDS: DILTIAZEM HCL 60MG TABLET PO SCH ×3 (06:00→21:55)
[2022-02-17] MEDS: SUCRALFATE 1 G/10 ML UDC PO SCH ×4 (06:51→21:54)
[2022-02-17 06:54] LABS: BASOPHILS % 1.6 % (0.0-2.0); EOSINOPHILS % 3.8 % (0.0-5.0); HEMATOCRIT. 24.1 % (42.0-52.0); HEMOGLOBIN. 8.1 g/dL (14.0-18.0); LYMPHOCYTES % 21.1 % (20.0-50.0); MEAN CORPUSCULAR VOLUME 89.6 fL (80.0-94.0); MONOCYTES % 14.8 % (2.0-8.0); NEUTROPHILS % 58.7 % (40.0-76.0); PLATELET 103 x1000/uL (130-400); RED BLOOD CELL COUNT 2.69 mill/uL (4.7-6.1); RED CELL DISTRIBUTION WIDTH 18.8 % (11.6-14.6)
[2022-02-17 07:06] LABS: CHLORIDE 111 mEq/L (98-107)
[2022-02-17] MEDS: LEVETIRACETAM 500MG PREMIX 100 ML IV SCH ×2 (08:41→21:54)
[2022-02-17] MEDS: PANTOPRAZOLE SODIUM 40 MG/VIAL IV SCH ×2 (08:41→17:14)
[2022-02-17] MEDS: MIDODRINE HCL 5MG TABLET PO SCH ×3 (08:45→17:14)
[2022-02-17] MEDS ORDERED: POTASSIUM CHLORIDE 20MEQ TABLET SR PO NR (10:30)
[2022-02-17] MEDS: LORAZEPAM 2MG/ML CPJ IV PRN (15:05)
[2022-02-18] VITALS (12 sets, daily range): BP systolic 96–115; BP diastolic 57–79
[2022-02-18] MEDS: LACTULOSE 20G/30ML UDC PO SCH ×2 (05:36→22:07)
[2022-02-18] MEDS: DILTIAZEM HCL 60MG TABLET PO SCH ×3 (05:38→22:00)
[2022-02-18] MEDS: IPRATROPIUM/ALBUTEROL 0.5-3(2.5)MG/3ML NEB HHN SCH ×3 (07:56→20:44)
[2022-02-18] MEDS: PANTOPRAZOLE SODIUM 40 MG/VIAL IV SCH ×2 (08:53→18:22)
[2022-02-18] MEDS: CHLORDIAZEPOXIDE 25MG CAPSULE PO SCH ×2 (08:53→22:07)
[2022-02-18] MEDS: SUCRALFATE 1 G/10 ML UDC PO SCH ×4 (08:53→22:07)
[2022-02-18] MEDS: MIDODRINE HCL 5MG TABLET PO SCH ×3 (08:54→18:23)
[2022-02-18] MEDS: ARIPIPRAZOLE 5MG TABLET PO SCH (08:54)
[2022-02-18] MEDS: LORAZEPAM 2MG/ML CPJ IV PRN (08:54)
[2022-02-18] MEDS: LEVETIRACETAM 500MG PREMIX 100 ML IV SCH ×2 (09:56→22:08)
[2022-02-18 11:30] LABS: BASOPHILS % 2.1 % (0.0-2.0); EOSINOPHILS % 3.9 % (0.0-5.0); HEMATOCRIT. 26.1 % (42.0-52.0); HEMOGLOBIN. 8.7 g/dL (14.0-18.0); LYMPHOCYTES % 14.7 % (20.0-50.0); MEAN CORPUSCULAR VOLUME 90.5 fL (80.0-94.0); MEAN PLATELET VOLUME 8.1 fl (7.4-10.4); MONOCYTES % 12.1 % (2.0-8.0); NEUTROPHILS % 67.2 % (40.0-76.0); PLATELET 130 x1000/uL (130-400); RED BLOOD CELL COUNT 2.89 mill/uL (4.7-6.1); RED CELL DISTRIBUTION WIDTH 18.5 % (11.6-14.6)
[2022-02-18 11:37] LABS: CHLORIDE 111 mEq/L (98-107)
[2022-02-18] MEDS ORDERED: POTASSIUM CHLORIDE 20MEQ TABLET SR PO NR (11:45)
[2022-02-19] VITALS (17 sets, daily range): BP systolic 84–129; BP diastolic 51–78
[2022-02-19] MEDS: IPRATROPIUM/ALBUTEROL 0.5-3(2.5)MG/3ML NEB HHN SCH ×4 (01:00→19:44)
[2022-02-19] MEDS: DILTIAZEM HCL 60MG TABLET PO SCH (06:00)
[2022-02-19] MEDS: LACTULOSE 20G/30ML UDC PO SCH ×3 (06:27→22:18)
[2022-02-19] MEDS: MIDODRINE HCL 5MG TABLET PO SCH ×3 (08:23→18:10)
[2022-02-19] MEDS: SUCRALFATE 1 G/10 ML UDC PO SCH ×4 (08:23→22:18)
[2022-02-19] MEDS: PANTOPRAZOLE SODIUM 40 MG/VIAL IV SCH ×2 (08:23→18:09)
[2022-02-19] MEDS: ARIPIPRAZOLE 5MG TABLET PO SCH (08:24)
[2022-02-19] MEDS: LEVETIRACETAM 500MG PREMIX 100 ML IV SCH ×2 (08:24→22:20)
[2022-02-19] MEDS: THIAMINE HCL 100MG TABLET PO SCH (08:24)
[2022-02-19] MEDS: CHLORDIAZEPOXIDE 25MG CAPSULE PO SCH ×2 (08:24→22:19)
[2022-02-19 11:31] LABS: BASOPHILS % 1.4 % (0.0-2.0); EOSINOPHILS % 4.2 % (0.0-5.0); HEMATOCRIT. 25.8 % (42.0-52.0); HEMOGLOBIN. 8.4 g/dL (14.0-18.0); LYMPHOCYTES % 15.9 % (20.0-50.0); MEAN CORPUSCULAR HEMOGLOBIN 29.4 pg (28.0-32.0); MEAN PLATELET VOLUME 8.7 fl (7.4-10.4); MONOCYTES % 10.5 % (2.0-8.0); PLATELET 139 x1000/uL (130-400); RED BLOOD CELL COUNT 2.86 mill/uL (4.7-6.1); RED CELL DISTRIBUTION WIDTH 18.6 % (11.6-14.6)
[2022-02-19 11:43] LABS: CHLORIDE 112 mEq/L (98-107)
[2022-02-19] MEDS: DIVALPROEX SODIUM 250MG DR TABLET PO SCH (21:00)
[2022-02-20] VITALS (12 sets, daily range): BP systolic 85–110; BP diastolic 44–72
[2022-02-20] MEDS: IPRATROPIUM/ALBUTEROL 0.5-3(2.5)MG/3ML NEB HHN SCH ×4 (01:08→21:33)
[2022-02-20 04:48] LABS: BASOPHILS % 1.2 % (0.0-2.0); EOSINOPHILS % 3.2 % (0.0-5.0); HEMATOCRIT. 27.4 % (42.0-52.0); LYMPHOCYTES % 10.5 % (20.0-50.0); MEAN CORPUSCULAR HEMOGLOBIN 29.6 pg (28.0-32.0); MEAN CORPUSCULAR VOLUME 89.8 fL (80.0-94.0); MEAN PLATELET VOLUME 8.7 fl (7.4-10.4); MONOCYTES % 9.4 % (2.0-8.0); NEUTROPHILS % 75.7 % (40.0-76.0); PLATELET 150 x1000/uL (130-400); RED BLOOD CELL COUNT 3.05 mill/uL (4.7-6.1); RED CELL DISTRIBUTION WIDTH 18.2 % (11.6-14.6)
[2022-02-20 04:53] LABS: CHLORIDE 109 mEq/L (98-107)
[2022-02-20] MEDS: LACTULOSE 20G/30ML UDC PO SCH ×3 (05:23→21:52)
[2022-02-20] MEDS: ACETAMINOPHEN 650MG/20.3ML UDC PO PRN (06:05)
[2022-02-20] MEDS: LORAZEPAM 2MG/ML CPJ IV PRN (06:24)
[2022-02-20] MEDS: POTASSIUM CHLORIDE 20MEQ TABLET SR PO NR ×2 (06:42→09:52)
[2022-02-20] MEDS: PANTOPRAZOLE SODIUM 40 MG/VIAL IV SCH ×2 (09:50→17:24)
[2022-02-20] MEDS: SUCRALFATE 1 G/10 ML UDC PO SCH ×4 (09:50→21:52)
[2022-02-20] MEDS: MIDODRINE HCL 5MG TABLET PO SCH ×3 (09:52→17:26)
[2022-02-20] MEDS: THIAMINE HCL 100MG TABLET PO SCH (09:52)
[2022-02-20] MEDS: ARIPIPRAZOLE 5MG TABLET PO SCH (09:53)
[2022-02-20] MEDS: DIVALPROEX SODIUM 250MG DR TABLET PO SCH ×2 (09:54→21:00)
[2022-02-20] MEDS: CHLORDIAZEPOXIDE 25MG CAPSULE PO SCH ×2 (10:16→21:52)
[2022-02-20] MEDS: LEVETIRACETAM 500MG PREMIX 100 ML IV SCH ×2 (10:17→21:52)
[2022-02-21] VITALS (15 sets, daily range): BP systolic 76–135; BP diastolic 59–97
[2022-02-21 05:49] LABS: BASOPHILS % 0.7 % (0.0-2.0); EOSINOPHILS % 2.7 % (0.0-5.0); HEMATOCRIT. 25.5 % (42.0-52.0); HEMOGLOBIN. 8.2 g/dL (14.0-18.0); LYMPHOCYTES % 9.8 % (20.0-50.0); MEAN CORPUSCULAR HEMOGLOBIN 29.9 pg (28.0-32.0); MEAN CORPUSCULAR VOLUME 92.5 fL (80.0-94.0); MEAN PLATELET VOLUME 8.9 fl (7.4-10.4); MONOCYTES % 7.1 % (2.0-8.0); NEUTROPHILS % 79.7 % (40.0-76.0); PLATELET 130 x1000/uL (130-400); RED BLOOD CELL COUNT 2.76 mill/uL (4.7-6.1)
[2022-02-21] MEDS: LACTULOSE 20G/30ML UDC PO SCH ×3 (06:00→21:39)
[2022-02-21 08:19] LABS: CHLORIDE 111 mEq/L (98-107)
[2022-02-21] MEDS: IPRATROPIUM/ALBUTEROL 0.5-3(2.5)MG/3ML NEB HHN SCH ×3 (08:29→21:26)
[2022-02-21] MEDS: ARIPIPRAZOLE 5MG TABLET PO SCH (09:12)
[2022-02-21] MEDS: DIVALPROEX SODIUM 250MG DR TABLET PO SCH ×2 (09:12→21:42)
[2022-02-21] MEDS: CHLORDIAZEPOXIDE 25MG CAPSULE PO SCH ×2 (09:12→21:39)
[2022-02-21] MEDS: SUCRALFATE 1 G/10 ML UDC PO SCH ×4 (09:12→21:39)
[2022-02-21] MEDS: LORAZEPAM 2MG/ML CPJ IV PRN ×2 (09:13→21:40)
[2022-02-21] MEDS: LEVETIRACETAM 500MG PREMIX 100 ML IV SCH ×2 (09:14→21:39)
[2022-02-21] MEDS: PANTOPRAZOLE SODIUM 40 MG/VIAL IV SCH ×2 (09:14→17:00)
[2022-02-21] MEDS: THIAMINE HCL 100MG TABLET PO SCH (09:36)
[2022-02-21] MEDS: MIDODRINE HCL 5MG TABLET PO SCH ×3 (09:37→17:00)
[2022-02-21] MEDS: QUETIAPINE FUMARATE 25MG TABLET PO SCH ×2 (09:37→21:42)
[2022-02-22] VITALS (12 sets, daily range): BP systolic 99–132; BP diastolic 66–91
[2022-02-22] MEDS: IPRATROPIUM/ALBUTEROL 0.5-3(2.5)MG/3ML NEB HHN SCH ×4 (01:37→20:11)
[2022-02-22 05:47] LABS: BASOPHILS % 1.1 % (0.0-2.0); EOSINOPHILS % 4.1 % (0.0-5.0); HEMATOCRIT. 26.5 % (42.0-52.0); HEMOGLOBIN. 8.5 g/dL (14.0-18.0); LYMPHOCYTES % 13.6 % (20.0-50.0); MEAN CORPUSCULAR HEMOGLOBIN 29.7 pg (28.0-32.0); MEAN CORPUSCULAR VOLUME 92.3 fL (80.0-94.0); MEAN PLATELET VOLUME 8.8 fl (7.4-10.4); MONOCYTES % 7.5 % (2.0-8.0); NEUTROPHILS % 73.7 % (40.0-76.0); PLATELET 150 x1000/uL (130-400); RED BLOOD CELL COUNT 2.87 mill/uL (4.7-6.1); RED CELL DISTRIBUTION WIDTH 19.8 % (11.6-14.6)
[2022-02-22] MEDS: LACTULOSE 20G/30ML UDC PO SCH ×3 (05:54→21:53)
[2022-02-22] MEDS: LORAZEPAM 2MG/ML CPJ IV PRN (05:54)
[2022-02-22 06:20] LABS: CHLORIDE 108 mEq/L (98-107)
[2022-02-22] MEDS: ARIPIPRAZOLE 5MG TABLET PO SCH (08:35)
[2022-02-22] MEDS: SUCRALFATE 1 G/10 ML UDC PO SCH ×4 (08:35→21:53)
[2022-02-22] MEDS: CHLORDIAZEPOXIDE 25MG CAPSULE PO SCH ×2 (08:35→21:54)
[2022-02-22] MEDS: PANTOPRAZOLE SODIUM 40 MG/VIAL IV SCH ×2 (08:35→16:58)
[2022-02-22] MEDS: DIVALPROEX SODIUM 250MG DR TABLET PO SCH ×2 (08:35→21:54)
[2022-02-22] MEDS: THIAMINE HCL 100MG TABLET PO SCH (08:35)
[2022-02-22] MEDS: MIDODRINE HCL 5MG TABLET PO SCH ×3 (08:36→16:58)
[2022-02-22] MEDS: LEVETIRACETAM 500MG PREMIX 100 ML IV SCH ×2 (08:39→21:54)
[2022-02-22] MEDS: QUETIAPINE FUMARATE 25MG TABLET PO SCH ×2 (08:39→21:54)
[2022-02-22] MEDS ORDERED: CEFTRIAXONE 1 G PREMIX 50 ML IV SCH (10:45)
[2022-02-22] MEDS: CEFTRIAXONE 1,000 MG in DEXTROSE 5% WATER 50 ML IV SCH (14:51)
[2022-02-23] VITALS (9 sets, daily range): BP systolic 93–115; BP diastolic 61–72
[2022-02-23] MEDS: IPRATROPIUM/ALBUTEROL 0.5-3(2.5)MG/3ML NEB HHN SCH ×3 (01:01→21:35)
[2022-02-23 05:52] LABS: CHLORIDE 108 mEq/L (98-107)
[2022-02-23] MEDS: LACTULOSE 20G/30ML UDC PO SCH ×3 (06:13→21:18)
[2022-02-23 06:48] LABS: BASOPHILS % 0.7 % (0.0-2.0); EOSINOPHILS % 4.2 % (0.0-5.0); HEMATOCRIT. 27.8 % (42.0-52.0); HEMOGLOBIN. 9.1 g/dL (14.0-18.0); LYMPHOCYTES % 12.3 % (20.0-50.0); MEAN CORPUSCULAR VOLUME 91.1 fL (80.0-94.0); MONOCYTES % 6.2 % (2.0-8.0); NEUTROPHILS % 76.6 % (40.0-76.0); PLATELET 178 x1000/uL (130-400); RED BLOOD CELL COUNT 3.05 mill/uL (4.7-6.1); RED CELL DISTRIBUTION WIDTH 19.7 % (11.6-14.6)
[2022-02-23] MEDS: PANTOPRAZOLE SODIUM 40 MG/VIAL IV SCH ×2 (10:54→17:30)
[2022-02-23] MEDS: DIVALPROEX SODIUM 250MG DR TABLET PO SCH ×2 (10:55→21:17)
[2022-02-23] MEDS: SUCRALFATE 1 G/10 ML UDC PO SCH ×4 (10:55→21:17)
[2022-02-23] MEDS: ARIPIPRAZOLE 5MG TABLET PO SCH (10:55)
[2022-02-23] MEDS: LEVETIRACETAM 500MG PREMIX 100 ML IV SCH ×2 (10:55→21:46)
[2022-02-23] MEDS: MIDODRINE HCL 5MG TABLET PO SCH ×3 (10:56→17:30)
[2022-02-23] MEDS: THIAMINE HCL 100MG TABLET PO SCH (10:56)
[2022-02-23] MEDS: QUETIAPINE FUMARATE 25MG TABLET PO SCH ×2 (11:01→21:17)
[2022-02-23] MEDS: CEFTRIAXONE 1,000 MG in DEXTROSE 5% WATER 50 ML IV SCH (13:19)
[2022-02-24] VITALS (7 sets, daily range): BP systolic 91–109; BP diastolic 63–76
[2022-02-24] MEDS: IPRATROPIUM/ALBUTEROL 0.5-3(2.5)MG/3ML NEB HHN SCH ×4 (01:05→21:49)
[2022-02-24] MEDS: LACTULOSE 20G/30ML UDC PO SCH ×3 (06:23→22:08)
[2022-02-24] MEDS: SUCRALFATE 1 G/10 ML UDC PO SCH ×4 (06:23→20:50)
[2022-02-24] MEDS: ONDANSETRON HCL 4MG/2ML INJ IV PRN (06:38)
[2022-02-24 06:55] LABS: EOSINOPHILS % 6.3 % (0.0-5.0); HEMATOCRIT. 26.7 % (42.0-52.0); HEMOGLOBIN. 8.8 g/dL (14.0-18.0); LYMPHOCYTES % 16.1 % (20.0-50.0); MEAN CORPUSCULAR HEMOGLOBIN 30.4 pg (28.0-32.0); MEAN CORPUSCULAR VOLUME 91.6 fL (80.0-94.0); MEAN PLATELET VOLUME 8.3 fl (7.4-10.4); MONOCYTES % 8.4 % (2.0-8.0); NEUTROPHILS % 68.2 % (40.0-76.0); PLATELET 153 x1000/uL (130-400); RED BLOOD CELL COUNT 2.91 mill/uL (4.7-6.1)
[2022-02-24] MEDS: DIVALPROEX SODIUM 250MG DR TABLET PO SCH ×2 (09:38→20:50)
[2022-02-24] MEDS: THIAMINE HCL 100MG TABLET PO SCH (09:38)
[2022-02-24] MEDS: ARIPIPRAZOLE 5MG TABLET PO SCH (09:38)
[2022-02-24] MEDS: MIDODRINE HCL 5MG TABLET PO SCH ×3 (09:39→18:22)
[2022-02-24] MEDS: LEVETIRACETAM 500MG PREMIX 100 ML IV SCH ×2 (09:39→20:50)
[2022-02-24] MEDS: PANTOPRAZOLE SODIUM 40 MG/VIAL IV SCH ×2 (09:40→18:22)
[2022-02-24 11:25] LABS: CHLORIDE 108 mEq/L (98-107)
[2022-02-24] MEDS ORDERED: POTASSIUM CHLORIDE 20MEQ TABLET SR PO NR (11:45)
[2022-02-24] MEDS: QUETIAPINE FUMARATE 25MG TABLET PO SCH ×2 (13:06→20:50)
[2022-02-24] MEDS: CEFTRIAXONE 1,000 MG in DEXTROSE 5% WATER 50 ML IV SCH (14:51)
[2022-02-24] MEDS: RIFAXIMIN 550 MG TABLET PO SCH (20:50)
[2022-02-25] MEDS: IPRATROPIUM/ALBUTEROL 0.5-3(2.5)MG/3ML NEB HHN SCH ×4 (00:49→21:23)
[2022-02-25 04:00] VITALS: BP 97/65
[2022-02-25] MEDS: LACTULOSE 20G/30ML UDC PO SCH ×3 (05:38→22:00)
[2022-02-25 06:17] LABS: BASOPHILS % 0.9 % (0.0-2.0); EOSINOPHILS % 3.3 % (0.0-5.0); HEMATOCRIT. 27.5 % (42.0-52.0); LYMPHOCYTES % 7.9 % (20.0-50.0); MEAN CORPUSCULAR HEMOGLOBIN 29.8 pg (28.0-32.0); MEAN PLATELET VOLUME 8.5 fl (7.4-10.4); MONOCYTES % 5.8 % (2.0-8.0); NEUTROPHILS % 82.1 % (40.0-76.0); PLATELET 134 x1000/uL (130-400); RED BLOOD CELL COUNT 3.02 mill/uL (4.7-6.1); RED CELL DISTRIBUTION WIDTH 20.5 % (11.6-14.6)
[2022-02-25 08:22] VITALS: BP 94/62
[2022-02-25] MEDS: LEVETIRACETAM 500MG PREMIX 100 ML IV SCH ×2 (09:05→21:51)
[2022-02-25] MEDS: RIFAXIMIN 550 MG TABLET PO SCH ×2 (09:06→21:51)
[2022-02-25] MEDS: PANTOPRAZOLE SODIUM 40 MG/VIAL IV SCH ×2 (09:06→16:35)
[2022-02-25] MEDS: SUCRALFATE 1 G/10 ML UDC PO SCH ×4 (09:06→21:51)
[2022-02-25] MEDS: THIAMINE HCL 100MG TABLET PO SCH (09:07)
[2022-02-25] MEDS: MIDODRINE HCL 5MG TABLET PO SCH ×3 (09:07→16:35)
[2022-02-25] MEDS: ARIPIPRAZOLE 5MG TABLET PO SCH (09:08)
[2022-02-25] MEDS: DIVALPROEX SODIUM 250MG DR TABLET PO SCH ×2 (09:08→21:51)
[2022-02-25] MEDS: QUETIAPINE FUMARATE 25MG TABLET PO SCH ×2 (09:19→21:51)
[2022-02-25 11:41] VITALS: BP 102/72
[2022-02-25] MEDS: CEFTRIAXONE 1,000 MG in DEXTROSE 5% WATER 50 ML IV SCH (12:27)
[2022-02-25 12:36] LABS: CHLORIDE 109 mEq/L (98-107)
[2022-02-25] MEDS ORDERED: SORBITOL 70% SOLN 30ML PO NR (15:00)
[2022-02-25 15:41] VITALS: BP 95/59
[2022-02-25 20:00] VITALS: BP 109/80
[2022-02-26] VITALS: BP 116/61
[2022-02-26] MEDS: IPRATROPIUM/ALBUTEROL 0.5-3(2.5)MG/3ML NEB HHN SCH ×4 (01:28→21:20)
[2022-02-26 04:18] VITALS: BP 98/68
[2022-02-26] MEDS: LACTULOSE 20G/30ML UDC PO SCH ×3 (05:45→21:59)
[2022-02-26] MEDS: SUCRALFATE 1 G/10 ML UDC PO SCH ×4 (05:50→21:59)
[2022-02-26 08:00] VITALS: BP 103/55
[2022-02-26 09:14] LABS: BASOPHILS % 0.6 % (0.0-2.0); HEMATOCRIT. 27.6 % (42.0-52.0); LYMPHOCYTES % 10.4 % (20.0-50.0); MEAN CORPUSCULAR VOLUME 91.7 fL (80.0-94.0); MEAN PLATELET VOLUME 8.7 fl (7.4-10.4); MONOCYTES % 7.2 % (2.0-8.0); NEUTROPHILS % 78.8 % (40.0-76.0); PLATELET 133 x1000/uL (130-400); RED BLOOD CELL COUNT 3.01 mill/uL (4.7-6.1); RED CELL DISTRIBUTION WIDTH 21.2 % (11.6-14.6)
[2022-02-26] MEDS: LEVETIRACETAM 500MG PREMIX 100 ML IV SCH ×2 (10:23→21:02)
[2022-02-26] MEDS: PANTOPRAZOLE SODIUM 40 MG/VIAL IV SCH ×2 (10:23→17:45)
[2022-02-26] MEDS: ARIPIPRAZOLE 5MG TABLET PO SCH (10:25)
[2022-02-26] MEDS: DIVALPROEX SODIUM 250MG DR TABLET PO SCH ×2 (10:25→21:59)
[2022-02-26] MEDS: MIDODRINE HCL 5MG TABLET PO SCH ×3 (10:26→17:45)
[2022-02-26] MEDS: RIFAXIMIN 550 MG TABLET PO SCH ×2 (10:27→21:59)
[2022-02-26] MEDS: THIAMINE HCL 100MG TABLET PO SCH (10:27)
[2022-02-26] MEDS: QUETIAPINE FUMARATE 25MG TABLET PO SCH (10:28)
[2022-02-26 10:38] LABS: CHLORIDE 108 mEq/L (98-107)
[2022-02-26 12:00] VITALS: BP 104/69
[2022-02-26] MEDS: CEFTRIAXONE 1,000 MG in DEXTROSE 5% WATER 50 ML IV SCH (12:30)
[2022-02-26 16:00] VITALS: BP 96/61
[2022-02-26 20:00] VITALS: BP 117/52
[2022-02-26] MEDS: QUETIAPINE FUMARATE 50MG TABLET PO SCH (21:59)
[2022-02-27] VITALS (7 sets, daily range): BP systolic 88–109; BP diastolic 64–75
[2022-02-27] MEDS: IPRATROPIUM/ALBUTEROL 0.5-3(2.5)MG/3ML NEB HHN SCH ×4 (02:11→21:10)
[2022-02-27] MEDS: LACTULOSE 20G/30ML UDC PO SCH ×3 (05:55→22:11)
[2022-02-27] MEDS: SUCRALFATE 1 G/10 ML UDC PO SCH ×4 (05:55→22:11)
[2022-02-27 07:20] LABS: HEMATOCRIT. 26.9 % (42.0-52.0); HEMOGLOBIN. 9.1 g/dL (14.0-18.0); MEAN CORPUSCULAR HEMOGLOBIN 30.5 pg (28.0-32.0); MEAN CORPUSCULAR VOLUME 90.3 fL (80.0-94.0); MEAN PLATELET VOLUME 8.6 fl (7.4-10.4); PLATELET 145 x1000/uL (130-400); RED BLOOD CELL COUNT 2.98 mill/uL (4.7-6.1); RED CELL DISTRIBUTION WIDTH 20.8 % (11.6-14.6)
[2022-02-27 08:18] LABS: CHLORIDE 108 mEq/L (98-107)
[2022-02-27] MEDS: RIFAXIMIN 550 MG TABLET PO SCH ×2 (09:10→22:11)
[2022-02-27] MEDS: ARIPIPRAZOLE 5MG TABLET PO SCH (09:10)
[2022-02-27] MEDS: QUETIAPINE FUMARATE 50MG TABLET PO SCH ×2 (09:11→22:10)
[2022-02-27] MEDS: PANTOPRAZOLE SODIUM 40 MG/VIAL IV SCH ×2 (09:11→18:22)
[2022-02-27] MEDS: THIAMINE HCL 100MG TABLET PO SCH (09:11)
[2022-02-27] MEDS: DIVALPROEX SODIUM 250MG DR TABLET PO SCH ×2 (09:11→22:10)
[2022-02-27] MEDS: MIDODRINE HCL 5MG TABLET PO SCH ×3 (09:51→18:37)
[2022-02-27] MEDS: LEVETIRACETAM 500MG PREMIX 100 ML IV SCH ×2 (09:54→21:15)
[2022-02-27 10:54] LABS: PLATELET ESTIMATE NORMAL
[2022-02-27] MEDS ORDERED: SODIUM CHLORIDE 3% FOR INH 4ML UD NEB INH NR (13:00)
[2022-02-27] MEDS ORDERED: POTASSIUM CHLORIDE 20MEQ TABLET SR PO NR (13:30)
[2022-02-27] MEDS ORDERED: VANCOMYCIN 1,500 MG in DEXT 5% WATER 250 ML IV SCH (14:00)
[2022-02-27] MEDS: CEFEPIME 1,000 MG in DEXTROSE 5% WATER 50 ML IV SCH (15:16)
[2022-02-27] MEDS: VANCOMYCIN 1500MG in DEXTROSE 5% WATER 250ML IV SCH (21:16)
[2022-02-28] MEDS: CEFEPIME 1,000 MG in DEXTROSE 5% WATER 50 ML IV SCH ×2 (01:27→13:32)
[2022-02-28] MEDS: IPRATROPIUM/ALBUTEROL 0.5-3(2.5)MG/3ML NEB HHN SCH ×4 (02:08→21:21)
[2022-02-28 03:55] VITALS: BP 108/74
[2022-02-28] MEDS: SUCRALFATE 1 G/10 ML UDC PO SCH ×4 (05:23→21:27)
[2022-02-28] MEDS: LACTULOSE 20G/30ML UDC PO SCH ×3 (05:23→21:27)
[2022-02-28] MEDS: VANCOMYCIN 1500MG in DEXTROSE 5% WATER 250ML IV SCH (05:39)
[2022-02-28 07:03] LABS: HEMATOCRIT. 26.6 % (42.0-52.0); HEMOGLOBIN. 8.8 g/dL (14.0-18.0); MEAN CORPUSCULAR HEMOGLOBIN 30.1 pg (28.0-32.0); MEAN CORPUSCULAR VOLUME 91.1 fL (80.0-94.0); MEAN PLATELET VOLUME 8.5 fl (7.4-10.4); PLATELET 138 x1000/uL (130-400); RED BLOOD CELL COUNT 2.92 mill/uL (4.7-6.1); RED CELL DISTRIBUTION WIDTH 21.3 % (11.6-14.6)
[2022-02-28 07:38] VITALS: BP 94/60
[2022-02-28 09:19] LABS: CHLORIDE 107 mEq/L (98-107)
[2022-02-28] MEDS: ARIPIPRAZOLE 5MG TABLET PO SCH (09:28)
[2022-02-28] MEDS: DIVALPROEX SODIUM 250MG DR TABLET PO SCH ×2 (09:28→21:00)
[2022-02-28] MEDS: MIDODRINE HCL 5MG TABLET PO SCH ×3 (09:28→17:22)
[2022-02-28] MEDS: PANTOPRAZOLE SODIUM 40 MG/VIAL IV SCH ×2 (09:28→17:22)
[2022-02-28] MEDS: THIAMINE HCL 100MG TABLET PO SCH (09:28)
[2022-02-28] MEDS: RIFAXIMIN 550 MG TABLET PO SCH ×2 (09:28→21:27)
[2022-02-28] MEDS: LEVETIRACETAM 500MG PREMIX 100 ML IV SCH ×2 (09:28→20:29)
[2022-02-28] MEDS: QUETIAPINE FUMARATE 50MG TABLET PO SCH ×2 (09:28→21:27)
[2022-02-28 09:59] LABS: PLATELET ESTIMATE NORMAL
[2022-02-28 11:45] VITALS: BP 100/63
[2022-02-28] MEDS ORDERED: FUROSEMIDE 20MG TABLET PO NR (14:15)
[2022-02-28] MEDS: VANCOMYCIN 1G PREMIX 200 ML IV SCH ×2 (14:53→22:18)
[2022-02-28 16:22] VITALS: BP 101/66
[2022-02-28] MEDS ORDERED: POTASSIUM CHLORIDE INJ 40 MEQ in DEXT 5% WATER 250 ML IV ONE (18:15)
[2022-02-28 20:00] VITALS: BP 111/69
[2022-02-28] MEDS ORDERED: MAGNESIUM 2 G PREMIX 50 ML IV NR (20:00)
[2022-02-28] MEDS: KCL 20MEQ/100ML X 2 FOR TOTAL KCL 40MEQ/200ML IV SCH ×2 (20:29→21:28)
[2022-03-01] VITALS: BP 103/57
[2022-03-01] MEDS: CEFEPIME 1,000 MG in DEXTROSE 5% WATER 50 ML IV SCH ×2 (01:02→13:00)
[2022-03-01] MEDS: IPRATROPIUM/ALBUTEROL 0.5-3(2.5)MG/3ML NEB HHN SCH ×4 (02:05→20:20)
[2022-03-01 04:00] VITALS: BP 94/60
[2022-03-01] MEDS: VANCOMYCIN 1G PREMIX 200 ML IV SCH (06:02)
[2022-03-01] MEDS: LACTULOSE 20G/30ML UDC PO SCH ×3 (06:02→21:48)
[2022-03-01] MEDS: SUCRALFATE 1 G/10 ML UDC PO SCH ×4 (06:10→20:01)
[2022-03-01 06:23] LABS: HEMATOCRIT. 29.1 % (42.0-52.0); HEMOGLOBIN. 9.5 g/dL (14.0-18.0); MEAN CORPUSCULAR VOLUME 91.5 fL (80.0-94.0); MEAN PLATELET VOLUME 8.7 fl (7.4-10.4); PLATELET 131 x1000/uL (130-400); RED BLOOD CELL COUNT 3.18 mill/uL (4.7-6.1)
[2022-03-01 08:00] VITALS: BP 97/66
[2022-03-01] MEDS: ARIPIPRAZOLE 5MG TABLET PO SCH (08:22)
[2022-03-01] MEDS: THIAMINE HCL 100MG TABLET PO SCH (08:22)
[2022-03-01] MEDS: LEVETIRACETAM 500MG PREMIX 100 ML IV SCH ×2 (08:22→20:00)
[2022-03-01] MEDS: RIFAXIMIN 550 MG TABLET PO SCH ×2 (08:23→20:00)
[2022-03-01] MEDS: PANTOPRAZOLE SODIUM 40 MG/VIAL IV SCH ×2 (08:23→16:00)
[2022-03-01] MEDS: DIVALPROEX SODIUM 250MG DR TABLET PO SCH ×2 (08:23→20:00)
[2022-03-01] MEDS: QUETIAPINE FUMARATE 50MG TABLET PO SCH ×2 (08:23→20:00)
[2022-03-01] MEDS: MIDODRINE HCL 5MG TABLET PO SCH ×3 (08:24→16:00)
[2022-03-01 09:32] LABS: CHLORIDE 105 mEq/L (98-107)
[2022-03-01 12:00] VITALS: BP 92/52
[2022-03-01] MEDS ORDERED: POTASSIUM CHLORIDE 20MEQ/PACKET PO NR (14:30)
[2022-03-01 15:28] LABS: PLATELET ESTIMATE NORMAL
[2022-03-01 16:00] VITALS: BP 92/59
[2022-03-01] MEDS: VANCOMYCIN 750MG PREMIX 150 ML IV SCH (16:00)
[2022-03-01] MEDS ORDERED: BISACODYL 5MG TABLET PO NR (16:15)
[2022-03-01] MEDS ORDERED: METOCLOPRAMIDE HCL 10MG/2ML VIAL IV SCH (18:00)
[2022-03-01] MEDS: LORAZEPAM 2MG/ML CPJ IV PRN (19:58)
[2022-03-01 20:00] VITALS: BP 101/66
[2022-03-01] MEDS ORDERED: ZOLPIDEM TARTRATE 5MG TABLET PO PRN (22:15)
[2022-03-02] VITALS (7 sets, daily range): BP systolic 86–110; BP diastolic 49–77
[2022-03-02] MEDS: CEFEPIME 1,000 MG in DEXTROSE 5% WATER 50 ML IV SCH ×2 (01:01→14:54)
[2022-03-02] MEDS: VANCOMYCIN 750MG PREMIX 150 ML IV SCH ×4 (01:21→23:06)
[2022-03-02] MEDS: IPRATROPIUM/ALBUTEROL 0.5-3(2.5)MG/3ML NEB HHN SCH ×4 (01:25→21:16)
[2022-03-02] MEDS: LACTULOSE 20G/30ML UDC PO SCH ×4 (05:23→18:01)
[2022-03-02] MEDS: SUCRALFATE 1 G/10 ML UDC PO SCH ×4 (05:24→20:03)
[2022-03-02] MEDS: PANTOPRAZOLE SODIUM 40 MG/VIAL IV SCH ×2 (08:43→16:33)
[2022-03-02] MEDS: LEVETIRACETAM 500MG PREMIX 100 ML IV SCH ×2 (08:43→20:03)
[2022-03-02] MEDS: QUETIAPINE FUMARATE 50MG TABLET PO SCH ×3 (09:00→20:03)
[2022-03-02 09:37] LABS: HEMOGLOBIN. 9.8 g/dL (14.0-18.0); MEAN CORPUSCULAR HEMOGLOBIN 30.3 pg (28.0-32.0); MEAN PLATELET VOLUME 8.3 fl (7.4-10.4); PLATELET 129 x1000/uL (130-400); RED BLOOD CELL COUNT 3.23 mill/uL (4.7-6.1); RED CELL DISTRIBUTION WIDTH 22.5 % (11.6-14.6)
[2022-03-02 09:46] LABS: CHLORIDE 107 mEq/L (98-107)
[2022-03-02] MEDS: ARIPIPRAZOLE 5MG TABLET PO SCH (09:51)
[2022-03-02] MEDS: MIDODRINE HCL 5MG TABLET PO SCH ×3 (09:51→16:34)
[2022-03-02] MEDS: THIAMINE HCL 100MG TABLET PO SCH (09:52)
[2022-03-02] MEDS: DIVALPROEX SODIUM 250MG DR TABLET PO SCH (09:54)
[2022-03-02 13:58] LABS: PLATELET ESTIMATE SLIGHTLY DECREASED
[2022-03-02] MEDS ORDERED: MAGNESIUM 2 G PREMIX 50 ML IV NR (17:00)
[2022-03-02] MEDS: LORAZEPAM 2MG/ML CPJ IV PRN (19:49)
[2022-03-02] MEDS ORDERED: ALBUMIN HUMAN 25GM/100ML (25%) IV NR (20:00)
[2022-03-02] MEDS: DIVALPROEX SODIUM 500MG DR TABLET PO SCH (21:00)
[2022-03-02] MEDS ORDERED: BISACODYL 10MG SUPP PR NR (21:00)
[2022-03-03] MEDS: IPRATROPIUM/ALBUTEROL 0.5-3(2.5)MG/3ML NEB HHN SCH ×4 (00:53→20:07)
[2022-03-03] MEDS: CEFEPIME 1,000 MG in DEXTROSE 5% WATER 50 ML IV SCH ×2 (01:07→13:39)
[2022-03-03 04:00] VITALS: BP 101/60
[2022-03-03] MEDS: SUCRALFATE 1 G/10 ML UDC PO SCH ×4 (06:24→20:51)
[2022-03-03] MEDS: LACTULOSE 20G/30ML UDC PO SCH ×3 (06:24→20:47)
[2022-03-03 07:41] LABS: BASOPHILS % 0.7 % (0.0-2.0); EOSINOPHILS % 3.9 % (0.0-5.0); HEMATOCRIT. 27.4 % (42.0-52.0); HEMOGLOBIN. 9.1 g/dL (14.0-18.0); LYMPHOCYTES % 15.6 % (20.0-50.0); MEAN CORPUSCULAR HEMOGLOBIN 30.1 pg (28.0-32.0); MEAN CORPUSCULAR VOLUME 90.9 fL (80.0-94.0); MEAN PLATELET VOLUME 8.4 fl (7.4-10.4); MONOCYTES % 13.6 % (2.0-8.0); NEUTROPHILS % 66.2 % (40.0-76.0); PLATELET 117 x1000/uL (130-400); RED BLOOD CELL COUNT 3.01 mill/uL (4.7-6.1); RED CELL DISTRIBUTION WIDTH 22.1 % (11.6-14.6)
[2022-03-03 08:00] VITALS: BP 97/63
[2022-03-03] MEDS: VANCOMYCIN 750MG PREMIX 150 ML IV SCH ×2 (08:51→16:37)
[2022-03-03] MEDS: PANTOPRAZOLE SODIUM 40 MG/VIAL IV SCH ×2 (08:51→16:37)
[2022-03-03] MEDS: LEVETIRACETAM 500MG PREMIX 100 ML IV SCH ×2 (08:51→20:51)
[2022-03-03] MEDS: ARIPIPRAZOLE 5MG TABLET PO SCH (09:15)
[2022-03-03] MEDS: QUETIAPINE FUMARATE 50MG TABLET PO SCH ×2 (09:15→20:46)
[2022-03-03] MEDS: THIAMINE HCL 100MG TABLET PO SCH (09:15)
[2022-03-03] MEDS: DIVALPROEX SODIUM 500MG DR TABLET PO SCH ×2 (09:15→20:46)
[2022-03-03] MEDS: MIDODRINE HCL 5MG TABLET PO SCH ×3 (09:16→16:37)
[2022-03-03 10:46] LABS: CHLORIDE 105 mEq/L (98-107)
[2022-03-03 11:50] VITALS: BP 94/67
[2022-03-03] MEDS: RIFAXIMIN 550 MG TABLET PO SCH ×2 (13:40→20:46)
[2022-03-03 13:57] LABS: BG BASE EXCESS 1.9 mmol/L (-2.0-2.0); BG CARBOXYHEMOGLOBIN 0.5 % (0.5-1.5); BG DEOXYHEMOGLOBIN 8.6 % (0.0-5.0); BG FRACTION INSPIRED OXYGEN 21; BG HCO3 ACT 25.7 mmol/L (22.0-26.0); BG METHEMOGLOBIN 0.2 % (0.0-1.5); BG OXYGEN SATURATION 91.3 % (92.0-98.5); BG OXYHEMOGLOBIN 90.7 % (94.0-97.0); BG PCO2 37.2 mmHg (35.0-45.0); BG PH 7.458 (7.350-7.450); BG PO2 62.5 mmHg (75.0-100.0); BG SAMPLE SITE LEFT RADIAL; BG TOTAL HEMOGLOBIN 9.8 g/dL (12.0-18.0); BG VENT MODE ROOM AIR
[2022-03-03] MEDS ORDERED: MAGNESIUM 4 G PREMIX 100 ML IV NR (14:30)
[2022-03-03 16:00] VITALS: BP 100/65
[2022-03-03 20:00] VITALS: BP 110/72
[2022-03-04] VITALS: BP 128/76
[2022-03-04] MEDS: VANCOMYCIN 750MG PREMIX 150 ML IV SCH ×3 (00:18→15:24)
[2022-03-04] MEDS: IPRATROPIUM/ALBUTEROL 0.5-3(2.5)MG/3ML NEB HHN SCH ×4 (01:19→20:38)
[2022-03-04] MEDS: CEFEPIME 1,000 MG in DEXTROSE 5% WATER 50 ML IV SCH ×2 (02:00→13:24)
[2022-03-04] MEDS: LACTULOSE 20G/30ML UDC PO SCH ×3 (06:07→21:43)
[2022-03-04 06:44] LABS: BASOPHILS % 0.1 % (0.0-2.0); EOSINOPHILS % 1.3 % (0.0-5.0); HEMATOCRIT. 31.2 % (42.0-52.0); LYMPHOCYTES % 7.3 % (20.0-50.0); MEAN CORPUSCULAR HEMOGLOBIN 29.9 pg (28.0-32.0); MEAN CORPUSCULAR VOLUME 93.7 fL (80.0-94.0); MEAN PLATELET VOLUME 9.1 fl (7.4-10.4); MONOCYTES % 8.9 % (2.0-8.0); NEUTROPHILS % 82.4 % (40.0-76.0); PLATELET 69 x1000/uL (130-400); RED BLOOD CELL COUNT 3.34 mill/uL (4.7-6.1); RED CELL DISTRIBUTION WIDTH 22.4 % (11.6-14.6)
[2022-03-04 08:00] VITALS: BP 100/51
[2022-03-04] MEDS: SUCRALFATE 1 G/10 ML UDC PO SCH ×4 (08:19→20:48)
[2022-03-04] MEDS: LEVETIRACETAM 500MG PREMIX 100 ML IV SCH ×2 (08:19→21:44)
[2022-03-04] MEDS: PANTOPRAZOLE SODIUM 40 MG/VIAL IV SCH ×2 (08:20→16:36)
[2022-03-04] MEDS: THIAMINE HCL 100MG TABLET PO SCH (08:20)
[2022-03-04] MEDS: DIVALPROEX SODIUM 500MG DR TABLET PO SCH ×2 (08:20→20:48)
[2022-03-04] MEDS: ARIPIPRAZOLE 5MG TABLET PO SCH (08:20)
[2022-03-04] MEDS: RIFAXIMIN 550 MG TABLET PO SCH ×2 (08:20→20:49)
[2022-03-04] MEDS: MIDODRINE HCL 5MG TABLET PO SCH ×3 (08:20→16:37)
[2022-03-04] MEDS: QUETIAPINE FUMARATE 50MG TABLET PO SCH ×2 (08:21→20:49)
[2022-03-04 10:32] LABS: PHOSPHORUS 2.2 mg/dL (2.5-4.9)
[2022-03-04] MEDS ORDERED: PHYTONADIONE 10MG/ML AMP SUBCUT NR (11:30)
[2022-03-04 12:00] VITALS: BP 95/53
[2022-03-04] MEDS ORDERED: POTASSIUM PHOS,M-BASIC-D-BASIC 30 MMOL in SODIUM CHLORIDE 0.9% 500 ML IV NR (13:00)
[2022-03-04] MEDS ORDERED: MAGNESIUM 4 G PREMIX 100 ML IV NR (13:00)
[2022-03-04 16:00] VITALS: BP 98/52
[2022-03-04 19:32] LABS: CLARITY URINE CLEAR (CLEAR); COLOR URINE YELLOW (YELLOW); KETONES URINE NEGATIVE (NEGATIVE); LEUKOCYTE ESTERASE URINE NEGATIVE (NEGATIVE); NITRITE URINE NEGATIVE (NEGATIVE); OCCULT BLOOD URINE NEGATIVE (NEGATIVE); PH URINE 7.5 (4.5-8.0); PROTEIN URINE NEGATIVE (NEGATIVE); UROBILINOGEN URINE 0.2 E.U./dL (0.2-1.0)
[2022-03-04 20:00] VITALS: BP 93/61
[2022-03-04] MEDS: CEFEPIME 2,000 MG in DEXT 5% WATER 100 ML IV SCH (20:48)
[2022-03-04] MEDS: METRONIDAZOLE 500MG TABLET PO SCH (21:44)
[2022-03-05 00:01] VITALS: BP 95/67
[2022-03-05] MEDS: CEFEPIME 2,000 MG in DEXT 5% WATER 100 ML IV SCH ×3 (03:21→19:30)
[2022-03-05 04:00] VITALS: BP 98/67
[2022-03-05] MEDS: LACTULOSE 20G/30ML UDC PO SCH ×4 (05:33→22:10)
[2022-03-05] MEDS: METRONIDAZOLE 500MG TABLET PO SCH ×4 (05:34→22:10)
[2022-03-05] MEDS: SUCRALFATE 1 G/10 ML UDC PO SCH ×5 (05:46→21:15)
[2022-03-05 07:32] LABS: PROTHROMBIN TIME 19.9 sec (9.6-11.0)
[2022-03-05 07:36] LABS: BASOPHILS % 0.6 % (0.0-2.0); HEMATOCRIT. 27.6 % (42.0-52.0); MEAN CORPUSCULAR HEMOGLOBIN 29.5 pg (28.0-32.0); MEAN CORPUSCULAR VOLUME 90.8 fL (80.0-94.0); MEAN PLATELET VOLUME 8.3 fl (7.4-10.4); MONOCYTES % 11.1 % (2.0-8.0); NEUTROPHILS % 72.3 % (40.0-76.0); PLATELET 102 x1000/uL (130-400); RED BLOOD CELL COUNT 3.04 mill/uL (4.7-6.1); RED CELL DISTRIBUTION WIDTH 21.7 % (11.6-14.6)
[2022-03-05 07:47] LABS: CHLORIDE 106 mEq/L (98-107)
[2022-03-05 07:57] LABS: PHOSPHORUS 3.4 mg/dL (2.5-4.9)
[2022-03-05 08:00] VITALS: BP 114/69
[2022-03-05] MEDS: THIAMINE HCL 100MG TABLET PO SCH (08:12)
[2022-03-05] MEDS: DIVALPROEX SODIUM 500MG DR TABLET PO SCH ×2 (08:12→21:15)
[2022-03-05] MEDS: ARIPIPRAZOLE 5MG TABLET PO SCH (08:13)
[2022-03-05] MEDS: MIDODRINE HCL 5MG TABLET PO SCH ×3 (08:14→16:13)
[2022-03-05] MEDS: PANTOPRAZOLE SODIUM 40 MG/VIAL IV SCH ×2 (08:17→16:10)
[2022-03-05] MEDS: RIFAXIMIN 550 MG TABLET PO SCH ×2 (08:18→21:15)
[2022-03-05] MEDS: LEVETIRACETAM 500MG PREMIX 100 ML IV SCH ×2 (08:19→21:15)
[2022-03-05] MEDS ORDERED: PHYTONADIONE 10MG/ML AMP SUBCUT NR (09:00)
[2022-03-05] MEDS ORDERED: PHYTONADIONE 10MG/ML AMP IM ONE ×2 (09:15)
[2022-03-05 12:00] VITALS: BP 102/72
[2022-03-05] MEDS: VANCOMYCIN 750MG PREMIX 150 ML IV SCH ×2 (12:14→20:25)
[2022-03-05 16:00] VITALS: BP 100/71
[2022-03-05 20:00] VITALS: BP 99/41
[2022-03-05] MEDS: QUETIAPINE FUMARATE 50MG TABLET PO SCH (21:15)
[2022-03-06] VITALS: BP 97/48
[2022-03-06] MEDS: CEFEPIME 2,000 MG in DEXT 5% WATER 100 ML IV SCH ×3 (03:18→20:12)
[2022-03-06 04:00] VITALS: BP_SYST 101; BP_SYST 96; BP_DIAS 47; BP_DIAS 50
[2022-03-06] MEDS: VANCOMYCIN 750MG PREMIX 150 ML IV SCH ×3 (04:21→21:21)
[2022-03-06] MEDS: LACTULOSE 20G/30ML UDC PO SCH ×3 (05:00→21:21)
[2022-03-06] MEDS: METRONIDAZOLE 500MG TABLET PO SCH ×3 (05:00→21:21)
[2022-03-06] MEDS: SUCRALFATE 1 G/10 ML UDC PO SCH ×4 (05:50→21:24)
[2022-03-06 06:06] LABS: BASOPHILS % 0.8 % (0.0-2.0); EOSINOPHILS % 4.9 % (0.0-5.0); HEMATOCRIT. 30.1 % (42.0-52.0); HEMOGLOBIN. 9.9 g/dL (14.0-18.0); MEAN CORPUSCULAR HEMOGLOBIN 29.8 pg (28.0-32.0); MEAN CORPUSCULAR VOLUME 90.1 fL (80.0-94.0); MEAN PLATELET VOLUME 8.6 fl (7.4-10.4); MONOCYTES % 12.6 % (2.0-8.0); NEUTROPHILS % 63.7 % (40.0-76.0); PLATELET 108 x1000/uL (130-400); RED BLOOD CELL COUNT 3.34 mill/uL (4.7-6.1); RED CELL DISTRIBUTION WIDTH 21.9 % (11.6-14.6)
[2022-03-06 06:13] LABS: CHLORIDE 104 mEq/L (98-107)
[2022-03-06 08:00] VITALS: BP 115/57
[2022-03-06] MEDS: THIAMINE HCL 100MG TABLET PO SCH (08:56)
[2022-03-06] MEDS: RIFAXIMIN 550 MG TABLET PO SCH ×2 (08:56→21:21)
[2022-03-06] MEDS: DIVALPROEX SODIUM 500MG DR TABLET PO SCH ×2 (08:56→21:21)
[2022-03-06] MEDS: ARIPIPRAZOLE 5MG TABLET PO SCH (08:56)
[2022-03-06] MEDS: MIDODRINE HCL 5MG TABLET PO SCH ×3 (08:56→16:25)
[2022-03-06] MEDS: PANTOPRAZOLE SODIUM 40 MG/VIAL IV SCH ×2 (08:57→16:24)
[2022-03-06] MEDS: LEVETIRACETAM 500MG PREMIX 100 ML IV SCH ×2 (08:57→21:21)
[2022-03-06 12:00] VITALS: BP 100/51
[2022-03-06] MEDS ORDERED: PHYTONADIONE 10MG/ML AMP SUBCUT SCH ×2 (15:30→20:00)
[2022-03-06 16:00] VITALS: BP 101/50
[2022-03-06 20:00] VITALS: BP 105/50
[2022-03-06] MEDS: QUETIAPINE FUMARATE 50MG TABLET PO SCH (21:21)
[2022-03-07] VITALS (13 sets, daily range): BP systolic 100–122; BP diastolic 49–61
[2022-03-07] MEDS: VANCOMYCIN 750MG PREMIX 150 ML IV SCH ×3 (04:00→20:48)
[2022-03-07] MEDS: SUCRALFATE 1 G/10 ML UDC PO SCH ×4 (05:40→20:49)
[2022-03-07] MEDS: METRONIDAZOLE 500MG TABLET PO SCH ×3 (05:40→21:09)
[2022-03-07] MEDS: LACTULOSE 20G/30ML UDC PO SCH ×3 (05:40→21:09)
[2022-03-07] MEDS: CEFEPIME 2,000 MG in DEXT 5% WATER 100 ML IV SCH ×3 (06:43→22:13)
[2022-03-07 07:47] LABS: BASOPHILS % 0.3 % (0.0-2.0); EOSINOPHILS % 4.4 % (0.0-5.0); HEMATOCRIT. 29.8 % (42.0-52.0); HEMOGLOBIN. 9.8 g/dL (14.0-18.0); LYMPHOCYTES % 16.9 % (20.0-50.0); MEAN CORPUSCULAR VOLUME 90.7 fL (80.0-94.0); MEAN PLATELET VOLUME 8.2 fl (7.4-10.4); MONOCYTES % 11.4 % (2.0-8.0); PLATELET 107 x1000/uL (130-400); RED BLOOD CELL COUNT 3.28 mill/uL (4.7-6.1); RED CELL DISTRIBUTION WIDTH 21.6 % (11.6-14.6)
[2022-03-07 07:48] LABS: CHLORIDE 107 mEq/L (98-107)
[2022-03-07] MEDS: RIFAXIMIN 550 MG TABLET PO SCH ×2 (08:48→20:49)
[2022-03-07] MEDS: DIVALPROEX SODIUM 500MG DR TABLET PO SCH ×2 (08:48→20:49)
[2022-03-07] MEDS: THIAMINE HCL 100MG TABLET PO SCH (08:48)
[2022-03-07] MEDS: PANTOPRAZOLE SODIUM 40 MG/VIAL IV SCH ×2 (08:48→16:02)
[2022-03-07] MEDS: LEVETIRACETAM 500MG PREMIX 100 ML IV SCH ×2 (08:48→21:52)
[2022-03-07] MEDS: ARIPIPRAZOLE 5MG TABLET PO SCH (08:48)
[2022-03-07] MEDS: MIDODRINE HCL 5MG TABLET PO SCH ×3 (08:49→16:45)
[2022-03-07] MEDS: IPRATROPIUM/ALBUTEROL 0.5-3(2.5)MG/3ML NEB HHN SCH ×3 (09:10→21:35)
[2022-03-07] MEDS ORDERED: CLONAZEPAM 0.5MG TABLET PO SCH ×2 (11:00→14:00)
[2022-03-07] MEDS ORDERED: NA PHOS,M-B/NA PHOS,DI-BA ENEMA 118ML PR PRN (15:45)
[2022-03-07] MEDS ORDERED: BISACODYL 5MG TABLET PO NR (15:45)
[2022-03-07 16:00] LABS: INR 1.8; PROTHROMBIN TIME 18.1 sec (9.6-11.0)
[2022-03-07] MEDS ORDERED: PHYTONADIONE 10MG/ML AMP SUBCUT NR (16:45)
[2022-03-07] MEDS ORDERED: MAGNESIUM 1 G PREMIX 100 ML IV NR (20:00)
[2022-03-07] MEDS: QUETIAPINE FUMARATE 50MG TABLET PO SCH (20:49)
[2022-03-07] MEDS: CLONAZEPAM 0.5MG TABLET PO SCH (21:09)
[2022-03-07] MEDS ORDERED: POTASSIUM CHLORIDE 20MEQ TABLET SR PO PRN (23:15)
[2022-03-07] MEDS ORDERED: POTASSIUM CHLORIDE 20MEQ TABLET SR PO NR (23:30)
[2022-03-08] VITALS (8 sets, daily range): BP systolic 91–110; BP diastolic 48–62
[2022-03-08] MEDS: IPRATROPIUM/ALBUTEROL 0.5-3(2.5)MG/3ML NEB HHN SCH ×4 (02:50→20:47)
[2022-03-08] MEDS: VANCOMYCIN 750MG PREMIX 150 ML IV SCH ×3 (04:29→20:46)
[2022-03-08] MEDS: CEFEPIME 2,000 MG in DEXT 5% WATER 100 ML IV SCH ×3 (04:30→19:54)
[2022-03-08] MEDS: CLONAZEPAM 0.5MG TABLET PO SCH ×3 (06:00→20:45)
[2022-03-08] MEDS: METRONIDAZOLE 500MG TABLET PO SCH ×3 (06:00→20:46)
[2022-03-08] MEDS: LACTULOSE 20G/30ML UDC PO SCH ×3 (06:00→20:45)
[2022-03-08 06:23] LABS: BASOPHILS % 0.4 % (0.0-2.0); HEMATOCRIT. 29.7 % (42.0-52.0); HEMOGLOBIN. 9.8 g/dL (14.0-18.0); LYMPHOCYTES % 17.9 % (20.0-50.0); MEAN CORPUSCULAR HEMOGLOBIN 29.9 pg (28.0-32.0); MEAN CORPUSCULAR VOLUME 90.6 fL (80.0-94.0); MEAN PLATELET VOLUME 8.3 fl (7.4-10.4); MONOCYTES % 11.8 % (2.0-8.0); NEUTROPHILS % 65.9 % (40.0-76.0); PLATELET 104 x1000/uL (130-400); RED BLOOD CELL COUNT 3.28 mill/uL (4.7-6.1); RED CELL DISTRIBUTION WIDTH 21.5 % (11.6-14.6)
[2022-03-08 06:34] LABS: INR 1.7; PROTHROMBIN TIME 17.7 sec (9.6-11.0)
[2022-03-08] MEDS: SUCRALFATE 1 G/10 ML UDC PO SCH ×4 (06:40→20:45)
[2022-03-08] MEDS: PANTOPRAZOLE SODIUM 40 MG/VIAL IV SCH ×2 (08:39→16:51)
[2022-03-08] MEDS: THIAMINE HCL 100MG TABLET PO SCH (08:40)
[2022-03-08] MEDS: LEVETIRACETAM 500MG PREMIX 100 ML IV SCH (08:40)
[2022-03-08] MEDS: DIVALPROEX SODIUM 500MG DR TABLET PO SCH ×2 (08:40→20:46)
[2022-03-08] MEDS: RIFAXIMIN 550 MG TABLET PO SCH ×2 (08:40→20:46)
[2022-03-08] MEDS: ARIPIPRAZOLE 5MG TABLET PO SCH (08:40)
[2022-03-08] MEDS: MIDODRINE HCL 5MG TABLET PO SCH ×3 (08:41→16:52)
[2022-03-08 11:34] LABS: CHLORIDE 106 mEq/L (98-107)
[2022-03-08] MEDS: QUETIAPINE FUMARATE 50MG TABLET PO SCH (20:45)
[2022-03-08] MEDS: LEVETIRACETAM 500MG TABLET PO SCH (20:46)
[2022-03-09] VITALS: BP 97/56
[2022-03-09] MEDS: IPRATROPIUM/ALBUTEROL 0.5-3(2.5)MG/3ML NEB HHN SCH ×3 (01:39→15:11)
[2022-03-09 02:07] LABS: BASOPHILS % 0.4 % (0.0-2.0); EOSINOPHILS % 3.6 % (0.0-5.0); HEMATOCRIT. 30.9 % (42.0-52.0); HEMOGLOBIN. 10.2 g/dL (14.0-18.0); LYMPHOCYTES % 19.1 % (20.0-50.0); MEAN CORPUSCULAR HEMOGLOBIN 30.1 pg (28.0-32.0); MEAN CORPUSCULAR VOLUME 91.1 fL (80.0-94.0); MEAN PLATELET VOLUME 8.4 fl (7.4-10.4); MONOCYTES % 11.4 % (2.0-8.0); NEUTROPHILS % 65.5 % (40.0-76.0); PLATELET 103 x1000/uL (130-400); RED BLOOD CELL COUNT 3.39 mill/uL (4.7-6.1); RED CELL DISTRIBUTION WIDTH 22.2 % (11.6-14.6)
[2022-03-09 02:50] LABS: CHLORIDE 107 mEq/L (98-107)
[2022-03-09 04:00] VITALS: BP 98/63
[2022-03-09] MEDS: CEFEPIME 2,000 MG in DEXT 5% WATER 100 ML IV SCH ×2 (04:06→12:15)
[2022-03-09] MEDS: VANCOMYCIN 750MG PREMIX 150 ML IV SCH ×2 (04:49→12:46)
[2022-03-09] MEDS: METRONIDAZOLE 500MG TABLET PO SCH ×2 (06:00→15:00)
[2022-03-09] MEDS: CLONAZEPAM 0.5MG TABLET PO SCH ×3 (06:00→20:28)
[2022-03-09] MEDS: SUCRALFATE 1 G/10 ML UDC PO SCH ×5 (06:00→20:23)
[2022-03-09 08:00] VITALS: BP 102/60
[2022-03-09] MEDS: RIFAXIMIN 550 MG TABLET PO SCH (09:03)
[2022-03-09] MEDS: ARIPIPRAZOLE 5MG TABLET PO SCH (09:03)
[2022-03-09] MEDS: MIDODRINE HCL 5MG TABLET PO SCH ×3 (09:03→17:18)
[2022-03-09] MEDS: THIAMINE HCL 100MG TABLET PO SCH (09:03)
[2022-03-09] MEDS: LEVETIRACETAM 500MG TABLET PO SCH ×2 (09:03→20:24)
[2022-03-09] MEDS: DIVALPROEX SODIUM 500MG DR TABLET PO SCH ×2 (09:04→20:26)
[2022-03-09 12:15] VITALS: BP 100/56
[2022-03-09 16:00] VITALS: BP 100/62
[2022-03-09 20:13] VITALS: BP 129/56
[2022-03-09] MEDS: QUETIAPINE FUMARATE 50MG TABLET PO SCH (20:24)
[2022-03-10] MEDS: CLONAZEPAM 0.5MG TABLET PO SCH ×3 (05:40→21:32)
[2022-03-10 07:15] LABS: BASOPHILS % 0.4 % (0.0-2.0); EOSINOPHILS % 3.1 % (0.0-5.0); HEMATOCRIT. 29.3 % (42.0-52.0); HEMOGLOBIN. 9.7 g/dL (14.0-18.0); LYMPHOCYTES % 10.8 % (20.0-50.0); MEAN CORPUSCULAR HEMOGLOBIN 29.9 pg (28.0-32.0); MEAN CORPUSCULAR VOLUME 90.7 fL (80.0-94.0); MEAN PLATELET VOLUME 8.4 fl (7.4-10.4); MONOCYTES % 9.7 % (2.0-8.0); PLATELET 114 x1000/uL (130-400); RED BLOOD CELL COUNT 3.23 mill/uL (4.7-6.1); RED CELL DISTRIBUTION WIDTH 21.9 % (11.6-14.6)
[2022-03-10] MEDS: LEVETIRACETAM 500MG TABLET PO SCH ×2 (09:12→21:31)
[2022-03-10] MEDS: DIVALPROEX SODIUM 500MG DR TABLET PO SCH ×2 (09:12→21:32)
[2022-03-10] MEDS: ARIPIPRAZOLE 5MG TABLET PO SCH (09:12)
[2022-03-10] MEDS: THIAMINE HCL 100MG TABLET PO SCH (09:12)
[2022-03-10] MEDS: MIDODRINE HCL 5MG TABLET PO SCH ×3 (09:13→17:00)
[2022-03-10] MEDS: SUCRALFATE 1 G/10 ML UDC PO SCH ×5 (09:15→21:31)
[2022-03-10 10:42] LABS: CHLORIDE 105 mEq/L (98-107)
[2022-03-10 12:00] VITALS: BP 87/57
[2022-03-10] MEDS: HALOPERIDOL LACTATE 5MG/ML VIAL IM PRN (15:42)
[2022-03-10] MEDS ORDERED: LORAZEPAM 2MG/ML CPJ IV PRN (18:45)
[2022-03-10] MEDS: QUETIAPINE FUMARATE 50MG TABLET PO SCH (21:32)
[2022-03-11] MEDS: CLONAZEPAM 0.5MG TABLET PO SCH ×3 (07:25→21:29)
[2022-03-11 08:00] VITALS: BP 88/55
[2022-03-11 08:09] LABS: CHLORIDE 104 mEq/L (98-107)
[2022-03-11] MEDS: SUCRALFATE 1 G/10 ML UDC PO SCH ×4 (08:09→20:00)
[2022-03-11] MEDS: DIVALPROEX SODIUM 500MG DR TABLET PO SCH ×2 (08:10→20:00)
[2022-03-11] MEDS: THIAMINE HCL 100MG TABLET PO SCH (08:10)
[2022-03-11] MEDS: LEVETIRACETAM 500MG TABLET PO SCH ×2 (08:12→20:00)
[2022-03-11] MEDS: ARIPIPRAZOLE 5MG TABLET PO SCH (08:17)
[2022-03-11 08:20] LABS: BASOPHILS % 0.6 % (0.0-2.0); EOSINOPHILS % 3.6 % (0.0-5.0); HEMATOCRIT. 31.8 % (42.0-52.0); HEMOGLOBIN. 10.4 g/dL (14.0-18.0); LYMPHOCYTES % 18.9 % (20.0-50.0); MEAN CORPUSCULAR HEMOGLOBIN 30.1 pg (28.0-32.0); MEAN CORPUSCULAR VOLUME 91.9 fL (80.0-94.0); MEAN PLATELET VOLUME 9.1 fl (7.4-10.4); MONOCYTES % 11.3 % (2.0-8.0); NEUTROPHILS % 65.6 % (40.0-76.0); PLATELET 86 x1000/uL (130-400); RED BLOOD CELL COUNT 3.46 mill/uL (4.7-6.1); RED CELL DISTRIBUTION WIDTH 22.9 % (11.6-14.6)
[2022-03-11] MEDS: MIDODRINE HCL 5MG TABLET PO SCH ×2 (08:27→17:45)
[2022-03-11 12:00] VITALS: BP 108/74
[2022-03-11 16:00] VITALS: BP 105/69
[2022-03-11] MEDS: QUETIAPINE FUMARATE 50MG TABLET PO SCH (20:00)
[2022-03-11] MEDS: HALOPERIDOL LACTATE 5MG/ML VIAL IM PRN (21:29)
[2022-03-11 21:35] VITALS: BP 90/51
[2022-03-12 00:30] VITALS: BP 92/53
[2022-03-12 04:00] VITALS: BP 91/49
[2022-03-12] MEDS: CLONAZEPAM 0.5MG TABLET PO SCH ×3 (06:15→20:55)
[2022-03-12 08:00] VITALS: BP 86/55
[2022-03-12] MEDS: LEVETIRACETAM 500MG TABLET PO SCH ×2 (08:20→20:54)
[2022-03-12] MEDS: SUCRALFATE 1 G/10 ML UDC PO SCH ×4 (08:20→20:54)
[2022-03-12] MEDS: MIDODRINE HCL 5MG TABLET PO SCH ×4 (08:20→18:36)
[2022-03-12] MEDS: DIVALPROEX SODIUM 500MG DR TABLET PO SCH ×2 (08:21→20:54)
[2022-03-12] MEDS: THIAMINE HCL 100MG TABLET PO SCH (08:21)
[2022-03-12] MEDS: ARIPIPRAZOLE 5MG TABLET PO SCH (08:23)
[2022-03-12 11:27] LABS: BASOPHILS % 0.6 % (0.0-2.0); EOSINOPHILS % 5.5 % (0.0-5.0); HEMATOCRIT. 30.2 % (42.0-52.0); HEMOGLOBIN. 10.1 g/dL (14.0-18.0); LYMPHOCYTES % 18.2 % (20.0-50.0); MEAN CORPUSCULAR HEMOGLOBIN 30.4 pg (28.0-32.0); MEAN CORPUSCULAR VOLUME 91.5 fL (80.0-94.0); MEAN PLATELET VOLUME 8.1 fl (7.4-10.4); MONOCYTES % 11.1 % (2.0-8.0); NEUTROPHILS % 64.6 % (40.0-76.0); PLATELET 107 x1000/uL (130-400); RED BLOOD CELL COUNT 3.31 mill/uL (4.7-6.1); RED CELL DISTRIBUTION WIDTH 22.4 % (11.6-14.6)
[2022-03-12 11:38] LABS: CHLORIDE 106 mEq/L (98-107)
[2022-03-12 11:41] LABS: PLATELET ESTIMATE DECREASED
[2022-03-12 12:00] VITALS: BP 102/59
[2022-03-12 16:00] VITALS: BP 135/74
[2022-03-12 20:00] VITALS: BP 92/44
[2022-03-12] MEDS: QUETIAPINE FUMARATE 50MG TABLET PO SCH (20:55)
[2022-03-12] MEDS ORDERED: NA PHOS,M-B/NA PHOS,DI-BA ENEMA 118ML PR PRN (21:30)
[2022-03-13] VITALS: BP 108/58
[2022-03-13] MEDS: SUCRALFATE 1 G/10 ML UDC PO SCH ×4 (07:26→20:48)
[2022-03-13 08:00] VITALS: BP 98/58
[2022-03-13] MEDS: MIDODRINE HCL 5MG TABLET PO SCH ×3 (08:12→18:51)
[2022-03-13] MEDS: DIVALPROEX SODIUM 500MG DR TABLET PO SCH (08:12)
[2022-03-13] MEDS: ARIPIPRAZOLE 5MG TABLET PO SCH (08:12)
[2022-03-13] MEDS: THIAMINE HCL 100MG TABLET PO SCH (08:12)
[2022-03-13] MEDS: LEVETIRACETAM 500MG TABLET PO SCH ×2 (08:13→20:49)
[2022-03-13 08:23] LABS: BASOPHILS % 0.2 % (0.0-2.0); EOSINOPHILS % 2.5 % (0.0-5.0); HEMATOCRIT. 30.3 % (42.0-52.0); LYMPHOCYTES % 17.6 % (20.0-50.0); MEAN CORPUSCULAR HEMOGLOBIN 30.5 pg (28.0-32.0); MEAN CORPUSCULAR VOLUME 92.3 fL (80.0-94.0); MEAN PLATELET VOLUME 8.1 fl (7.4-10.4); MONOCYTES % 9.5 % (2.0-8.0); NEUTROPHILS % 70.2 % (40.0-76.0); PLATELET 108 x1000/uL (130-400); RED BLOOD CELL COUNT 3.28 mill/uL (4.7-6.1); RED CELL DISTRIBUTION WIDTH 23.3 % (11.6-14.6)
[2022-03-13 10:18] LABS: CHLORIDE 106 mEq/L (98-107)
[2022-03-13 12:00] VITALS: BP 106/64
[2022-03-13 16:00] VITALS: BP 114/62
[2022-03-13 20:00] VITALS: BP 120/57
[2022-03-13] MEDS: QUETIAPINE FUMARATE 50MG TABLET PO SCH (20:49)
[2022-03-13] MEDS: LACTULOSE 20G/30ML UDC PO SCH (20:49)
[2022-03-13] MEDS: HALOPERIDOL LACTATE 5MG/ML VIAL IM PRN (22:56)
[2022-03-14] VITALS: BP 100/59
[2022-03-14 04:00] VITALS: BP 124/63
[2022-03-14] MEDS: LACTULOSE 20G/30ML UDC PO SCH ×3 (05:02→21:53)
[2022-03-14] MEDS: SUCRALFATE 1 G/10 ML UDC PO SCH ×4 (05:02→21:53)
[2022-03-14 08:00] VITALS: BP 93/62
[2022-03-14] MEDS: THIAMINE HCL 100MG TABLET PO SCH (09:05)
[2022-03-14] MEDS: LEVETIRACETAM 500MG TABLET PO SCH ×2 (09:05→21:53)
[2022-03-14] MEDS: ARIPIPRAZOLE 5MG TABLET PO SCH (09:06)
[2022-03-14] MEDS: MIDODRINE HCL 5MG TABLET PO SCH ×3 (09:06→17:00)
[2022-03-14 12:00] VITALS: BP 94/58
[2022-03-14 16:00] VITALS: BP 102/66
[2022-03-14 16:14] LABS: BASOPHILS % 0.5 % (0.0-2.0); EOSINOPHILS % 3.9 % (0.0-5.0); HEMATOCRIT. 34.5 % (42.0-52.0); HEMOGLOBIN. 11.2 g/dL (14.0-18.0); LYMPHOCYTES % 14.6 % (20.0-50.0); MEAN CORPUSCULAR HEMOGLOBIN 30.3 pg (28.0-32.0); MEAN CORPUSCULAR VOLUME 93.8 fL (80.0-94.0); MEAN PLATELET VOLUME 8.4 fl (7.4-10.4); MONOCYTES % 12.9 % (2.0-8.0); NEUTROPHILS % 68.1 % (40.0-76.0); PLATELET 125 x1000/uL (130-400); RED BLOOD CELL COUNT 3.68 mill/uL (4.7-6.1); RED CELL DISTRIBUTION WIDTH 24.4 % (11.6-14.6)
[2022-03-14 17:00] LABS: CHLORIDE 103 mEq/L (98-107)
[2022-03-14] MEDS ORDERED: BISACODYL 10MG SUPP PR NR (19:45)
[2022-03-14 20:00] VITALS: BP 112/73
[2022-03-14] MEDS: QUETIAPINE FUMARATE 50MG TABLET PO SCH (21:53)
[2022-03-14] MEDS: RIFAXIMIN 550 MG TABLET PO SCH (21:53)
[2022-03-15] VITALS: BP 110/70
[2022-03-15 04:00] VITALS: BP 113/77
[2022-03-15] MEDS: LACTULOSE 20G/30ML UDC PO SCH ×3 (05:45→21:36)
[2022-03-15 08:00] VITALS: BP 108/60
[2022-03-15 08:01] LABS: HEMATOCRIT. 32.4 % (42.0-52.0); HEMOGLOBIN. 10.7 g/dL (14.0-18.0); MEAN CORPUSCULAR HEMOGLOBIN 30.4 pg (28.0-32.0); MEAN CORPUSCULAR VOLUME 91.4 fL (80.0-94.0); MEAN PLATELET VOLUME 8.2 fl (7.4-10.4); PLATELET 142 x1000/uL (130-400); RED BLOOD CELL COUNT 3.54 mill/uL (4.7-6.1)
[2022-03-15] MEDS: ARIPIPRAZOLE 5MG TABLET PO SCH (09:23)
[2022-03-15] MEDS: SUCRALFATE 1 G/10 ML UDC PO SCH ×2 (09:23→12:47)
[2022-03-15] MEDS: LEVETIRACETAM 500MG TABLET PO SCH ×2 (09:23→21:30)
[2022-03-15] MEDS: RIFAXIMIN 550 MG TABLET PO SCH ×2 (09:23→21:30)
[2022-03-15] MEDS: THIAMINE HCL 100MG TABLET PO SCH (09:24)
[2022-03-15] MEDS: MIDODRINE HCL 5MG TABLET PO SCH ×3 (09:24→18:12)
[2022-03-15 10:00] LABS: INR 1.4; PROTHROMBIN TIME 14.6 sec (9.6-11.0)
[2022-03-15 11:55] LABS: PLATELET ESTIMATE NORMAL
[2022-03-15 12:00] VITALS: BP 99/69
[2022-03-15 12:32] LABS: CHLORIDE 102 mEq/L (98-107)
[2022-03-15 16:00] VITALS: BP 98/64
[2022-03-15 19:43] LABS: PHOSPHORUS 2.6 mg/dL (2.5-4.9)
[2022-03-15 20:28] VITALS: BP 101/60
[2022-03-15] MEDS: QUETIAPINE FUMARATE 50MG TABLET PO SCH (21:30)
[2022-03-16] VITALS: BP 98/52
[2022-03-16 04:00] VITALS: BP 110/54
[2022-03-16] MEDS: LACTULOSE 20G/30ML UDC PO SCH ×3 (05:17→22:00)
[2022-03-16] MEDS: ACETAMINOPHEN 325MG TABLET PO PRN ×2 (05:45→09:39)
[2022-03-16 06:42] LABS: HEMATOCRIT. 29.2 % (42.0-52.0); MEAN CORPUSCULAR HEMOGLOBIN 31.5 pg (28.0-32.0); MEAN CORPUSCULAR VOLUME 91.7 fL (80.0-94.0); MEAN PLATELET VOLUME 8.2 fl (7.4-10.4); PLATELET 113 x1000/uL (130-400); RED BLOOD CELL COUNT 3.18 mill/uL (4.7-6.1); RED CELL DISTRIBUTION WIDTH 24.5 % (11.6-14.6)
[2022-03-16 08:00] VITALS: BP 90/50
[2022-03-16] MEDS: LEVETIRACETAM 500MG TABLET PO SCH ×2 (09:30→21:00)
[2022-03-16] MEDS: ARIPIPRAZOLE 5MG TABLET PO SCH (09:30)
[2022-03-16] MEDS: THIAMINE HCL 100MG TABLET PO SCH (09:30)
[2022-03-16] MEDS: LEVOFLOXACIN 250MG TABLET PO SCH (09:30)
[2022-03-16] MEDS: RIFAXIMIN 550 MG TABLET PO SCH ×2 (09:30→21:00)
[2022-03-16] MEDS: MIDODRINE HCL 5MG TABLET PO SCH ×3 (09:32→17:04)
[2022-03-16 12:00] VITALS: BP 96/66
[2022-03-16 15:41] LABS: CHLORIDE 106 mEq/L (98-107)
[2022-03-16 18:18] LABS: PLATELET ESTIMATE DECREASED
[2022-03-16 20:00] VITALS: BP 113/62
[2022-03-16] MEDS: QUETIAPINE FUMARATE 50MG TABLET PO SCH (21:00)
[2022-03-17] MEDS: LACTULOSE 20G/30ML UDC PO SCH (06:00)
[2022-03-17] MEDS: LEVOFLOXACIN 250MG TABLET PO SCH (08:00)
[2022-03-17] MEDS: THIAMINE HCL 100MG TABLET PO SCH (08:56)
[2022-03-17] MEDS: LEVETIRACETAM 500MG TABLET PO SCH (08:56)
[2022-03-17] MEDS: ARIPIPRAZOLE 5MG TABLET PO SCH (08:56)
[2022-03-17] MEDS: MIDODRINE HCL 5MG TABLET PO SCH (08:56)
[2022-03-17] MEDS: RIFAXIMIN 550 MG TABLET PO SCH (08:57)
== END 2022-03-17 12:20 | disposition left against medical advice (07) | DRG 130 ==
LOC: ER 20:01 → MICUSO 22:29 → EDBEDREQTM 22:41 → EDBEDREQSVC 22:41 → EDBEDREQ 22:41 → CVICU 02-08 02:40 → 5EST 02-18 00:41 → 8WST 02-23 11:45 → 7EST 03-04 22:58 → 4WST 03-09 18:18 → 6EST 03-10 10:49 → 7WST 03-15 16:04
PROVIDERS: ADMIT Internal Medicine; ATTEND Internal Medicine
PROC: 30233K1 Transfusion of Nonautologous Frozen Plasma into Peripheral Vein, Percutaneous Approach (ICD-10-PCS; 2022-02-07)
PROC: 30233N1 Transfusion of Nonautologous Red Blood Cells into Peripheral Vein, Percutaneous Approach (ICD-10-PCS; 2022-02-07)
PROC: 02HV33Z Insertion of Infusion Device into Superior Vena Cava, Percutaneous Approach (ICD-10-PCS; 2022-02-08)
PROC: 5A1955Z Respiratory Ventilation, Greater than 96 Consecutive Hours (ICD-10-PCS; principal; 2022-02-09)
PROC: 0BH17EZ Insertion of Endotracheal Airway into Trachea, Via Natural or Artificial Opening (ICD-10-PCS; 2022-02-09)
PROC: 0DB78ZX Excision of Stomach, Pylorus, Via Natural or Artificial Opening Endoscopic, Diagnostic (ICD-10-PCS; 2022-02-11)
PROC: 4A00X4Z Measurement of Central Nervous Electrical Activity, External Approach (ICD-10-PCS; 2022-02-14)
DX: J96.00 Acute respiratory failure, unspecified whether with hypoxia or hypercapnia (principal); J12.82 Pneumonia due to coronavirus disease 2019; R57.8 Other shock; A41.9 Sepsis, unspecified organism; G93.41 Metabolic encephalopathy; E44.0 Moderate protein-calorie malnutrition; E72.20 Disorder of urea cycle metabolism, unspecified; K22.11 Ulcer of esophagus with bleeding; U07.1 COVID-19; K92.0 Hematemesis; F10.231 Alcohol dependence with withdrawal delirium; K76.82 Hepatic encephalopathy; E88.09 Other disorders of plasma-protein metabolism, not elsewhere classified; K76.6 Portal hypertension; F20.9 Schizophrenia, unspecified; J90 Pleural effusion, not elsewhere classified; E87.6 Hypokalemia; E87.20 Acidosis, unspecified; E83.42 Hypomagnesemia; D62 Acute posthemorrhagic anemia; D68.9 Coagulation defect, unspecified; F22 Delusional disorders; E83.39 Other disorders of phosphorus metabolism; D69.6 Thrombocytopenia, unspecified; I27.21 Secondary pulmonary arterial hypertension; K70.31 Alcoholic cirrhosis of liver with ascites; K51.90 Ulcerative colitis, unspecified, without complications; K80.20 Calculus of gallbladder without cholecystitis without obstruction; K59.00 Constipation, unspecified; K29.70 Gastritis, unspecified, without bleeding; D72.829 Elevated white blood cell count, unspecified; K92.1 Melena; K44.9 Diaphragmatic hernia without obstruction or gangrene; F15.90 Other stimulant use, unspecified, uncomplicated; R74.01 Elevation of levels of liver transaminase levels; F10.239 Alcohol dependence with withdrawal, unspecified; Z68.23 Body mass index [BMI] 23.0-23.9, adult; Z79.899 Other long term (current) drug therapy; Z59.00 Homelessness unspecified; Z78.1 Physical restraint status; Z53.29 Procedure and treatment not carried out because of patient's decision for other reasons; Z91.199 Patient's noncompliance with other medical treatment and regimen due to unspecified reason
CPT/HCPCS: 31500; 36415; 36573; 36600; 71045; 71250; 74018; 76700; 76705; 80048; 80053; 80076; 80202; 81003; 82040; 82140; 82270; 82375; 82805; 83605; 83735; 83880; 84100; 84132; 84145; 84478; 85014; 85018; 85025; 85027; 86705; 86709; 86803; 86850; 86900; 86920; 86927; 87070; 87340; 87426; 88305; 88312; 88313; 92610; 94002; 94003; 94640; 94667; 95816; 97110; 97116; 97162; 97164; 97165; 97530; 99291; A6261; C1725; C1893; C9113; C9803; J0692; J0696; J1630; J1953; J2060; J2250; J2354; J2405; J2704; J3010; J3370; J3411; J3430; J3475; J3480; J3490; J7030; J7040; J7050; J7060; J7070; P9016; P9017; P9047; U0003; U0005